=== PATIENT | female | born 1955 | race Caucasian/White ===

== ENCOUNTER 2018-04-07 08:36 | Emergency (ER) | payer OTHER ==
[2018-04-07 08:39] VITALS: TEMP 36.7; Ht 167.6 cm
[2018-04-07 08:48] VITALS: O2SAT 94
[2018-04-07] MEDS ORDERED: HYDROmorphone INJ 0.5 MG/0.5 ML SYR IM STA (09:01)
[2018-04-07] MEDS ORDERED: ONDANSETRON 4MG OD TAB PO ONE (09:15)
[2018-04-07] MEDS ORDERED: ASPI81TA28 PO (09:29)
[2018-04-07] MEDS ORDERED: ADVIN25/60 INH (09:29)
[2018-04-07] MEDS ORDERED: CYCL5TAB PO (09:29)
[2018-04-07] MEDS ORDERED: VNTHFA/IN INH (09:29)
[2018-04-07] MEDS ORDERED: SIMV10TA2 PO (09:29)
[2018-04-07] MEDS ORDERED: POTA20SO2 PO (09:29)
[2018-04-07] MEDS ORDERED: FSM70 PO (09:29)
--- NOTE | 2018-04-07 10:24 | DIAGNOSTIC IMAGING REPORT ---
LEFT FEMUR 4 VIEWS HISTORY: Left femur and knee pain. COMPARISON: None. FINDINGS: There is no fracture or dislocation. Soft tissues are unremarkable. The visualized pelvic bones are intact. Cartilage spaces within the left hip are within normal limits. Diffuse muscle atrophy. No significant knee effusion. IMPRESSION: No fracture or dislocation within the left femur. Electronically signed by: Alfred Doe M.D. 04/07/2018 10:23 AM Dictated Date/Time: 04/07/2018 10:21 AM
--- NOTE | 2018-04-07 10:26 | DIAGNOSTIC IMAGING REPORT ---
LUMBAR SPINE 5 VIEWS HISTORY: LLE pain - possible lumbar radiculitis COMPARISON: None. FINDINGS: There is no fracture. No subluxation. Mild disc space are at L5-S1. S1 appears to be a transitional vertebra. Remaining disc spaces are preserved. Mild facet osteoarthritis within the L5-S1. Calcification within the right upper quadrant is likely due to the overlying ribs but could represent a 5 mm renal stone. IMPRESSION: Mild degenerative changes at L5-S1. No fracture or subluxation within the lumbar spine. Electronically signed by: Alfred Doe M.D. 04/07/2018 10:25 AM Dictated Date/Time: 04/07/2018 10:23 AM
[2018-04-07] MEDS ORDERED: OXYC1TAB3 PO (11:07)
[2018-04-07 11:30] VITALS: BP 108/66; PULSE 71; O2SAT 96
--- NOTE | 2018-04-07 11:41 | EMERGENCY ROOM VISIT NOTE ---
History First contact with patient: 08:49 Chief Complaint: LEG PAIN,LEG INJURY Stated Complaint: SEVERE LEFT LEG PAIN History of Present Illness The patient is a 62 year old female who presents to the Emergency Room with complaints of severe left thigh and knee pain. The patient reports that her symptoms started on Friday and have progressively worsened. Her pain is worsened with any movement and ambulation at this point. She has noticed some swelling of the leg. She currently denies any pain extending into the left hip , buttock or back. She denies any paresthesias or numbness of the left lower extremity. The patient denies any history of left hip or knee arthritis. She denies history of chronic back pain or sciatica. The patient reports that she was at the [facility] emergency department yesterday and had x-rays and ultrasounds done. She was provided a prescription for Flexeril, but reports that her pain is not currently being controlled. The patient denies any recent trauma to the leg. She denies any prior history of blood clots. She rates her discomfort a 10 out of 10. Review of Systems 10 system review was performed and was negative except for pertinent positives and negatives as indicated in history of present illness Past Medical/Surgical History Medical Problems: (1) Asthma (2) COPD (chronic obstructive pulmonary disease) Surgical Problems: (1) History of hernia repair (2) History of tubal ligation Family History CVA Social History Smoking Status: Current Every Day Smoker Alcohol Use: none Housing Status: lives with family Occupation Status: unemployed Current/Historical Medications Scheduled Alendronate Sodium (Alendronate Sodium), 70 MG PO WK Aspirin (Aspirin Ec), 81 MG PO DAILY Cyclobenzaprine Hcl (Flexeril), 5 MG PO TID Fluticasone Prop/Salmeterol (Advair Diskus 250/50 60 Dose), 1 PUFF INH BID Potassium Chloride (Potassium Chloride), 7.5 ML PO DAILY Simvastatin (Zocor), 10 MG PO QPM Scheduled PRN Albuterol Hfa (Ventolin Hfa), 2-4 PUFFS INH Q6H PRN for SOB/Wheezing Oxycodone Ir (Roxicodone Ir), 1 TAB PO Q4H PRN for Pain Physical Exam Vital Signs Date Time Temp Pulse Resp B/P (MAP) Pulse Ox O2 Delivery O2 Flow Rate FiO2 04/07/18 11:30 71 18 108/66 96 04/07/18 10:45 78 18 104/63 95 Nasal Cannula 3.0 04/07/18 08:48 94 Nasal Cannula 3.0 04/07/18 08:39 36.7 114 20 117/65 95 Room Air Physical Exam CONSTITUTIONAL: Healthy and well nourished. Alert and oriented X 3 with positive affect. Patient appears in moderate discomfort from pain. HEENT: Normocephalic, atraumatic. Pupils equal, round and reactive. No scleral icterus or conjunctival injection. NECK: Full active range of motion without discomfort. RESPIRATORY: Clear to auscultation bilaterally with no wheezing, crackles, rhonchi or stridor. CARDIOVASCULAR: Regular rate and rhythm with no murmurs, rubs or gallops. GASTROINTESTINAL: Bowel sounds present in all quadrants. Soft and nontender to palpation. MUSCULOSKELETAL: Examination shows no tenderness to palpation through the lower lumbar spine, left SI joint or sciatic notch. Negative logroll. Examination shows notable tenderness to palpation over the left lateral thigh, posterior thigh and general knee region. No soft tissue edema, ecchymosis or increased warmth to palpation. Pedal pulses are strong and bounding. INTEGUMENTARY: No rash or other significant dermatologic conditions noted. NEUROLOGIC: No focal neurologic deficits noted. Left foot and toes are sensory intact. Medical Decision & Procedures ER Provider Diagnostic Interpretation: My interpretation of lumbar spine and left femur x-rays does not show any obvious fractures, subluxations or dislocations. Radiologist reports are as follows: LUMBAR SPINE 5 VIEWS HISTORY: LLE pain - possible lumbar radiculitis COMPARISON: None. FINDINGS: There is no fracture. No subluxation. Mild disc space are at L5-S1. S1 appears to be a transitional vertebra. Remaining disc spaces are preserved. Mild facet osteoarthritis within the L5-S1. Calcification within the right upper quadrant is likely due to the overlying ribs but could represent a 5 mm renal stone. IMPRESSION: Mild degenerative changes at L5-S1. No fracture or subluxation within the lumbar spine. LEFT FEMUR 4 VIEWS HISTORY: Left femur and knee pain. COMPARISON: None. FINDINGS: There is no fracture or dislocation. Soft tissues are unremarkable. The visualized pelvic bones are intact. Cartilage spaces within the left hip are within normal limits. Diffuse muscle atrophy. No significant knee effusion. IMPRESSION: No fracture or dislocation within the left femur. Medications Administered Medications (Trade) Dose Ordered Sig/Dimas Route Start Time Stop Time Status Last Admin Dose Admin Ondansetron HCl (Zofran Odt) 4 mg ONE ONCE PO 04/07/18 09:15 04/07/18 09:16 DC 04/07/18 09:08 4 MG Hydromorphone HCl (Dilaudid Inj) 0.5 mg ONE STAT IM 04/07/18 09:01 04/07/18 09:04 DC 04/07/18 09:08 0.5 MG ED Course Patient history and physical exam were performed. Nurse's notes were reviewed. Vital signs were reviewed and were grossly normal. The patient was administered IM Dilaudid and Zofran ODT for pain. Records were reviewed from the [facility]. The patient had a venous ultrasound of the left lower extremity that was normal. She also had an x-ray of the left knee that was normal. She had lab work performed that was normal, along with an ECG and chest x-ray that were unremarkable. The patient was provided a prescription for Flexeril, and instructed to follow-up with her PCP for further management. Based on physical exam findings, I suggested that we add an x-ray of the lumbar spine and femur. The patient was administered OxyIR 5 mg for pain. X-rays of the lower back and left femur were normal. Upon return to examine the patient, she was resting comfortably. The patient still had tenderness to palpation of the right proximal femur, again without any skin changes or other concerning physical exam findings. The case was also discussed with Dr. Ladd, ED attending physician, who also evaluated the patient and agrees with discharge planning and PCP follow-up. The daughter who is with her reports that she has both a walker and access to a wheelchair at home. I did encourage limited weightbearing over the next several days. She was encouraged to take ibuprofen and Tylenol for baseline pain relief. She was provided a prescription for OxyIR 5 mg. She was warned about sedation and constipation while taking these medications. The patient was happy with plan of care, voiced understanding of all discharge instructions, and rated her pain a 3 out of 10 at the time of discharge. The patient was trial ambulated with a walker with success. Medical Decision Medication Reconcilliation Current Medication List: was personally reviewed by me Blood Pressure Screening Patient's blood pressure: Normal blood pressure Impression Primary Impression: Pain of left lower extremity Departure Information Prescriptions Oxycodone Ir (Roxicodone Ir) 5 Mg Tab 1 TAB PO Q4H Y for Pain, #10 TAB For Initial Treatment Prov: Isiah Weiss PA 04/07/18 Referrals No Doctor, Assigned (PCP) Patient Instructions [facility]
--- NOTE | 2018-04-07 18:13 | EMERGENCY ROOM VISIT NOTE ---
ED Visit Note First contact with patient: 10:54 I have personally seen and evaluated the patient with the PA. I agree with the diagnosis and management decisions and have been personally involved in the case. Please see Ronaldo Weiss PA-C's notes for further details of the history, physical and visit.
== END 2018-04-07 11:32 | disposition home or self-care (01) ==
LOC: C.EDB 08:38 → C.EDA 11:32
DX: M79.605 Pain in left leg (principal); J44.9 Chronic obstructive pulmonary disease, unspecified; Z98.51 Tubal ligation status; Z82.3 Family history of stroke; F17.210 Nicotine dependence, cigarettes, uncomplicated; Z79.82 Long term (current) use of aspirin; Z79.899 Other long term (current) drug therapy

== ENCOUNTER 2019-01-29 17:38 | Inpatient (IN) ==
[2019-01-29] MEDS ORDERED: ALBUTEROL HFA 8 GM INHALER INH ONE (18:19)
[2019-01-29] MEDS ORDERED: ALBUT/IPRATROP 3MG/0.5MG NEB 3 ML VIAL NEB ONE (18:19)
[2019-01-29] MEDS ORDERED: methylPREDNISolone 125 MG/2 ML VIAL IV STA (18:22)
[2019-01-29 18:35] LABS: Basophils # (auto) 0.01 K/uL (0-0.2); Basophils % (auto) 0.1 %; Eosinophils # (auto) 0.01 K/uL (0-0.5); Eosinophils % (auto) 0.1 %; Hematocrit (blood only) 42.4 % (37-47); Hemoglobin 13.4 g/dL (12.0-16.0); Immature Granulocytes # (auto) 0.03 K/uL (0.00-0.02); Immature Granulocytes % (auto) 0.3 %; Lymphocytes # (auto) 1.62 K/uL (1.2-3.4); Lymphocytes % (auto) 13.6 %; Mean Corpuscular Hgb Conc 31.6 g/dL (32-36); Mean Corpuscular Volume 95.1 fL (80-100); Mean Platelet Volume 10.5 fL (7.4-10.4); Monocytes # (auto) 0.97 K/uL (0.11-0.59); Monocytes % (auto) 8.2 %; Neutrophils # (auto) 9.25 K/uL (1.4-6.5); Neutrophils % (auto) 77.7 %; Platelet Count 314 K/uL (130-400); RDW Coefficient of Variation 14.1 % (11.5-14.5); RDW Standard Deviation 48.5 fL (36.4-46.3); Red Blood Count 4.46 M/uL (4.2-5.4); White Blood Count 11.89 K/uL (4.8-10.8)
--- NOTE | 2019-01-29 18:42 | XRay Report ---
XR chest 1V portable CLINICAL HISTORY: Chest Pain dyspnea COMPARISON STUDY: 01/28/2019 FINDINGS: The bones soft tissues and hemidiaphragms are normal. The cardiomediastinal silhouette is n ormal. The lungs are clear. The pulmonary vasculature is normal. IMPRESSION: Negative chest. Stable emphysematous change The above report was generated using voice recognition software. It may contain grammatical, syntax or spelling errors. Electronically signed by: Eric Esquivel M.D. 01/29/2019 6:41 PM
[2019-01-29 18:45] LABS: Alanine Aminotransferase 25 U/L (12-78); Albumin Level 3.6 gm/dl (3.4-5.0); Aspartate Aminotransferase 16 U/L (15-37); Blood Urea Nitrogen 12 mg/dl (7-18); Calcium 8.5 mg/dl (8.5-10.1); Carbon Dioxide 33 mmol/L (21-32); Chloride 102 mmol/L (98-107); Creatinine Clr Calc Pharmacy 62.9 ml/min; Est GFR (African American) 108.5; Est GFR (Non-African American) 93.6; Glucose 128 mg/dl (70-99); Potassium 4.2 mmol/L (3.5-5.1); Sodium 141 mmol/L (136-145)
[2019-01-29 18:50] LABS: Albumin Globulin Ratio 1.1 (0.9-2); Alkaline Phosphatase 108 U/L (45-117); Bilirubin,Total 0.2 mg/dl (0.2-1); Creatine Kinase 137 U/L (26-192); Creatine Kinase MB 3.9 ng/ml (0.5-3.6); Globulin 3.4 gm/dl (2.5-4.0); Troponin I < 0.015 ng/ml (0-0.045)
[2019-01-29] MEDS ORDERED: MAGNESIUM SULFATE / D5W 1 GM/100 ML BAG IV ONE (19:42)
--- NOTE | 2019-01-29 22:25 | History & Physical Report ---
Date of Service January 29, 2019 Assessment & Plan (1) COPD exacerbation: 63-year-old female was admitted on 29 January 2019 for shortness of breath. Of note, she was seen in the ED the day prior with similar symptoms. Shortness of breath, COPD vs asthma exacerbation: Patient notes some progressive SOB over the past couple of days. Denies any current chest pain, fevers, or infectious symptoms. She was seen in the ED the day prior to admission, treated with DuoNeb Solu-Medrol, discharged on steroids. However she says her SOB persisted at home on day of admit. At present, afebrile, borderline tachycardic prior to her neb, 93% on 3 L nasal cannula oxygen. EKG is sinus tachycardia with rate 123. Mild leukocytosis of 11. Negative troponin. pCXR notes no acute infiltrate with stable emphysematous changes. - In ED on evening of admission, was treated with albuterol, Solu-Medrol 60 mg, and magnesium 1 gram. - On admit, ordered scheduled DuoNeb's q6h and Solu-Medrol 40 mg IV every 8 hours. Will keep her on her home Advair. Smoking cessation education ordered. - Of note, at home she is on 3L [place] oxygen continuously. Falls: Patient says that recently she has been falling more often. She attributes this to episodes of acute shortness of breath but also some chronic deconditioning. - We will ask PT and OT to evaluate for potential home exercises. Ongoing medical issues: - Hypercholesterolemia: Continue home simvastatin. - Osteoporosis: Continue home alendronate. - ? hypokalemia: Patient says she takes potassium at home but is unsure why. We will continue here. Code status: Full code. Diet: Regular. DVT prophy: Lovenox daily. PT/OT: Ordered. Disbo: Admit for observation to [facility]. (2) Asthma: (3) Falls: (4) Hypercholesteremia: (5) Osteoporosis: History of Present Illness Primary Care Provider: Alesha Means 63-year-old female presents via EMS with concerns for progressively worsening shortness of breath. She has known history of asthma and COPD, as well as continues to smoke up to 1 pack/day for over 45 years. She says she ran out of her nebulizer solution and albuterol MDI over the past few days. She presented to the emergency department yesterday, was provided breathing treatments and steroids, and sent home with the same. She says she went to the pharmacy to fill those. However, she says that the nebulizer solution was unfamiliar to her and did not seem to help throughout today. She says her shortness of breath is worse with ambulation and that she has a mild cough. She also says that she has some concerns about falling, primarily when she becomes acutely SOB. She denies any recent fevers or chills, chest pain, feeling of a recent illness, or any other acute concerns. PMH includes asthma and COPD. PSH includes tubal ligation, inguinal hernia repair, breast biopsy. Social history includes daily smoker about 1 pack/day since age 16. Denies alcohol use. Lives at home with her daughter, nephews, and daughter's boyfriend. PCP is Dr. Alesha Means. Allergies Allergy/AdvReac Type Severity Reaction Status Date / Time No Known Allergies Allergy Unverified 01/29/19 18:06 Home Medications Home Medications Medication Instructions Recorded Confirmed Type albuterol sulfate 1.25 mg INH Q6H PRN #75 ml 01/28/19 01/29/19 Rx albuterol sulfate [Ventolin HFA] 2 - 4 puff INHALATION Q6H PRN 01/28/19 01/29/19 History alendronate 70 mg PO WK 01/28/19 01/29/19 History aspirin 81 mg PO QAM 01/28/19 01/29/19 History fluticasone-salmeterol [Advair 1 puff INHALATION BID 01/28/19 01/29/19 History Diskus] ipratropium-albuterol 1 vial INHALATION Q4H 01/28/19 01/29/19 History potassium chloride 7.5 ml PO QAM 01/28/19 01/29/19 History prednisone 50 mg PO DAILY 5 Days #5 tab 01/28/19 01/29/19 Rx simvastatin 10 mg PO HS 01/28/19 01/29/19 History Past Med/Surg History Medical History Asthma COPD (chronic obstructive pulmonary disease) Surgical History History of hernia repair History of tubal ligation Social History Preferred Language: Danish Communication Ability: Effective Patient Partner Required: No Beliefs That Will Affect Care: None Current Living Situation: Family Feels Safe at Home: Yes Safety Concerns: Feels Safe At This Time Smoking Status: Current every day smoker Hx Alcohol Use: No Hx Substance Use: No Review of Systems Constitutional: Denies fevers, chills, focal weakness Eyes: Denies any visual loss or diplopia ENT: Denies any ear/nose/throat pain or difficulty speaking or swallowing Respiratory: See HPI. Cardiovascular: Denies any chest pain or feeling of edema Gastrointestinal: Denies any abdominal pain, nausea/vomiting/diarrhea Musculoskeletal: Denies any acute extremity pains, myalgias, or focal weakness Skin: Denies any known acute rashes or lesions Neuro: Denies any headache, acute focal weakness or numbness, or difficulties with speech or swallow. Physical Exam Vital Signs (Past 24 Hours): Last Vital Signs Temp 36.8 C 01/29/19 17:42 Pulse 98 H 01/29/19 22:02 Resp 20 01/29/19 22:02 BP 97/53 L 01/29/19 22:02 Pulse Ox 94 01/29/19 22:02 Physical Exam: GENERAL: Awake, alert, well-appearing, nasal cannula oxygen in place, speaking in full sentences, does not appear in any acute distress (respiratory or otherwise). Thin habitus. HENT: Normocephalic, atraumatic. Oropharynx unremarkable. EYES: Normal conjunctiva. Sclera non-icteric. NECK: Inspection normal. Non-tender. Supple and full ROM. No nuchal rigidity. CARDIAC: +S1S2 RRR, no murmurs. RESPIRATORY: Diffuse inspiratory and expiratory wheezing. Normal respiratory effort. Nasal cannula oxygen in place. GI: +BS, soft, non-distended. No tenderness to palpation. No rebound or guarding. EXTREMITIES: No pedal edema or calf tenderness. Moving all extremities naturally and easily. NEURO: No gross neuro deficits. Results & Data Laboratory Results Laboratory Results WBC 11.89 K/uL (4.8-10.8) H 01/29/19 17:10 RBC 4.46 M/uL (4.2-5.4) 01/29/19 17:10 Hgb 13.4 g/dL (12.0-16.0) 01/29/19 17:10 Hct 42.4 % (37-47) 01/29/19 17:10 MCV 95.1 fL (80-100) 01/29/19 17:10 MCH 30.0 pg (25-34) 01/29/19 17:10 MCHC 31.6 g/dL (32-36) L 01/29/19 17:10 RDW Std Deviation 48.5 fL (36.4-46.3) H 01/29/19 17:10 RDW Coeff of Maria D 14.1 % (11.5-14.5) 01/29/19 17:10 Plt Count 314 K/uL (130-400) 01/29/19 17:10 MPV 10.5 fL (7.4-10.4) H 01/29/19 17:10 Immature Gran % (Auto) 0.3 % 01/29/19 17:10 Neut % (Auto) 77.7 % 01/29/19 17:10 Lymph % (Auto) 13.6 % 01/29/19 17:10 [place] % (Auto) 8.2 % 01/29/19 17:10 Eos % (Auto) 0.1 % 01/29/19 17:10 Baso % (Auto) 0.1 % 01/29/19 17:10 Immature Gran # (Auto) 0.03 K/uL (0.00-0.02) H 01/29/19 17:10 Neut # (Auto) 9.25 K/uL (1.4-6.5) H 01/29/19 17:10 Lymph # (Auto) 1.62 K/uL (1.2-3.4) 01/29/19 17:10 [place] # (Auto) 0.97 K/uL (0.11-0.59) H 01/29/19 17:10 Eos # (Auto) 0.01 K/uL (0-0.5) 01/29/19 17:10 Baso # (Auto) 0.01 K/uL (0-0.2) 01/29/19 17:10 Sodium 141 mmol/L (136-145) 01/29/19 17:10 Potassium 4.2 mmol/L (3.5-5.1) 01/29/19 17:10 Chloride 102 mmol/L (98-107) 01/29/19 17:10 Carbon Dioxide 33 mmol/L (21-32) H 01/29/19 17:10 Anion Gap 6.0 (3-11) 01/29/19 17:10 BUN 12 mg/dl (7-18) 01/29/19 17:10 Creatinine 0.64 mg/dl (0.6-1.2) 01/29/19 17:10 Est Cr Clr Drug Dosing 62.9 ml/min 01/29/19 17:10 Est GFR ( Amer) 108.5 01/29/19 17:10 Est GFR (Non-Af Amer) 93.6 01/29/19 17:10 BUN/Creatinine Ratio 18.0 (10-20) 01/29/19 17:10 Glucose 128 mg/dl (70-99) H 01/29/19 17:10 Calcium 8.5 mg/dl (8.5-10.1) 01/29/19 17:10 Total Bilirubin 0.2 mg/dl (0.2-1) 01/29/19 17:10 AST 16 U/L (15-37) 01/29/19 17:10 ALT 25 U/L (12-78) 01/29/19 17:10 Alkaline Phosphatase 108 U/L (45-117) 01/29/19 17:10 Total Creatine Kinase 137 U/L (26-192) 01/29/19 17:10 CK-MB (CK-2) 3.9 ng/ml (0.5-3.6) H 01/29/19 17:10 CK/CKMB % Calc 2.8 (0-3.0) 01/29/19 17:10 Troponin I < 0.015 ng/ml (0-0.045) 01/29/19 17:10 Total Protein 7.0 gm/dl (6.4-8.2) 01/29/19 17:10 Albumin 3.6 gm/dl (3.4-5.0) 01/29/19 17:10 Globulin 3.4 gm/dl (2.5-4.0) 01/29/19 17:10 Albumin/Globulin Ratio 1.1 (0.9-2) 01/29/19 17:10 Lipase 402 U/L (73-393) H 01/29/19 17:10 Diagnostic Findings XR chest 1V portable CLINICAL HISTORY: Chest Pain dyspnea COMPARISON STUDY: 01/28/2019 FINDINGS: The bones soft tissues and hemidiaphragms are normal. The cardiomediastinal silhouette is normal. The lungs are clear. The pulmonary vasculature is normal. IMPRESSION: Negative chest. Stable emphysematous change Code Status & VTE Plan Code Status Full code Supervising Physician Co-Signing Physician Notes Attending addendum: I have physically seen this patient, have supervised the medical residents activities, and agree with the H&P unless as otherwise noted. Assessment and Plan: COPD exacerbation/tobacco use disorder-- Duonebs every 4 hours while awake and every 2 hours when necessary. Solu-Medrol 40 mg IV every 8 hours. Nasal cannula oxygen, titrate to keep pulse ox between 92-94%. Baseline oxygen is 3 L nasal cannula at home. Continue Advair. Tobacco cessation counseling. Remainder of orders and notations as noted. Resident Activity Tracking Resident Involvement: Resident Care Provided Care Provided: Adult Hospital Medicine
--- NOTE | 2019-01-29 23:51 | Emergency Department Note ---
Entered by Barbara Elder acting as a scribe for History of Present Illness General Chief complaint: Shortness of Breath/Dyspnea Time Seen by Provider: 01/29/19 17:40 Source: patient and family Mode of arrival: ambulatory Limitations: no limitations History of Present Illness Onset (ago): day(s) 2 Location: chest Radiation: non-radiation Pain Consistency: + constant Relieved By: + none Exacerbated By: + movement Associated symptoms: + denies other symptoms Treatments prior to arrival: other (Solu-Medrol, DuoNeb treatments, steroids) The patient is a 63 year old female who presents to the Emergency Room with complaints of worsening shortness of breath. She was brought to the ED via ALS. She has a history of COPD and is a 1 pack a day smoker. She reports she wears 3L NC chronically. EMS states she was 90% on room air when they arrived today. The patient was seen here in the ED yesterday for the same symptoms and was placed o n steroids, which she states she has been taking as prescribed. She states she recently ran out of her breathing treatments including Ventolin. EMS gave her 3 DuoNeb treatments and 125 mg of Solu-Medrol via IV. Home Medications Home Medications Medication Instructions Recorded Confirmed Type albuterol sulfate 1.25 mg INH Q6H PRN #75 ml 01/28/19 01/29/19 Rx albuterol sulfate [Ventolin HFA] 2 - 4 puff INHALATION Q6H PRN 01/28/19 01/29/19 History alendronate 70 mg PO WK 01/28/19 01/29/19 History aspirin 81 mg PO QAM 01/28/19 01/29/19 History fluticasone-salmeterol [Advair 1 puff INHALATION BID 01/28/19 01/29/19 History Diskus] ipratropium-albuterol 1 vial INHALATION Q4H 01/28/19 01/29/19 History potassium chloride 7.5 ml PO QAM 01/28/19 01/29/19 History prednisone 50 mg PO DAILY 5 Days #5 tab 01/28/19 01/29/19 Rx simvastatin 10 mg PO HS 01/28/19 01/29/19 History Allergies Allergy/AdvReac Type Severity Reaction Status Date / Time No Known Allergies Allergy Unverified 01/29/19 18:06 Past Med/Surg History Medical History Asthma COPD (chronic obstructive pulmonary disease) Surgical History History of hernia repair History of tubal ligation Social History Preferred Language: Pashto Feels Safe at Home: Yes Smoking Status: Current every day smoker Review of Systems See HPI for pertinent positives & negatives. and A total of 10 systems reviewed and were otherwise negative Physical Exam Vital Signs Vital Signs - 24 hr 01/29/19 17:42 01/29/19 17:45 01/29/19 17:47 Temperature 36.8 C Temperature Source Oral Sepsis Recent Fever Within 48 Hours No Sepsis New/Unexplained Change in Mental Status No Sepsis Action Taken by Nursing No Action Required Pulse Rate 128 H Pulse Rate [Right Finger] Pulse Rhythm [Right Finger] Pulse Strength [Right Finger] Respiratory Rate 20 Respiratory Effort / Characteristics Non-Labored Spontaneous Non-Labored Spontaneous Respiratory Depth Normal Normal Respiratory Pattern Regular Regular Blood Pressure 123/66 Blood Pressure [Right Arm] Blood Pressure Mean 85 Blood Pressure Mean [Right Arm] Pulse Oximetry 93 93 Oxygen Delivery Method Room Air Room Air Nasal Cannula Oxygen Flow Rate 3 01/29/19 18:51 01/29/19 18:53 01/29/19 20:14 Temperature Temperature Source Sepsis Recent Fever Within 48 Hours Sepsis New/Unexplained Change in Mental Status Sepsis Action Taken by Nursing Pulse Rate Pulse Rate [Right Finger] 103 H 101 H 123 H Pulse Rhythm [Right Finger] Regular Pulse Strength [Right Finger] Normal Respiratory Rate 16 23 18 Respiratory Effort / Characteristics Non-Labored Spontaneous Non-Labored Spontaneous Respiratory Depth Normal Respiratory Pattern Blood Pressure Blood Pressure [Right Arm] 126/77 115/68 Blood Pressure Mean Blood Pressure Mean [Right Arm] 93 83 Pulse Oximetry 93 99 93 Oxygen Delivery Method Nasal Cannula Nebulizer Nebulizer Oxygen Flow Rate 3 8 01/29/19 22:02 01/29/19 22:45 01/29/19 23:40 Temperature Temperature Source Sepsis Recent Fever Within 48 Hours Sepsis New/Unexplained Change in Mental Status Sepsis Action Taken by Nursing Pulse Rate 78 Pulse Rate [Right Finger] 98 H 114 H Pulse Rhythm [Right Finger] Regular Regular Pulse Strength [Right Finger] Normal Normal Respiratory Rate 20 16 18 Respiratory Effort / Characteristics Non-Labored Spontaneous Non-Labored Spontaneous Respiratory Depth Normal Normal Respiratory Pattern Blood Pressure 98/46 L Blood Pressure [Right Arm] 97/53 L 114/61 Blood Pressure Mean Blood Pressure Mean [Right Arm] 67 78 Pulse Oximetry 94 94 97 Oxygen Delivery Method Nasal Cannula Room Air Nasal Cannula Oxygen Flow Rate 3 3 GENERAL: Awake, alert, well-appearing, in no distress HENT: Normocephalic, atraumatic. Oropharynx unremarkable. EYES: Normal conjunctiva. Sclera non-icteric. NECK: Supple. No nuchal rigidity. FROM. No masses. RESPIRATORY: Distant lung sounds with wheezing present at the bilateral bases. CARDIAC: Normal rate. Normal rhythm. No murmurs. No rubs. Extremities warm and well perfused. Pulses equal. No JVD. GI: Soft, non-distended. No tenderness to palpation. No rebound or guarding. No masses. RECTAL: Deferred. MUSCULOSKELETAL: Atraumatic. Chest examination reveals no tenderness. The back is symmetrical on inspection without obvious abnormality. There is no CVA tenderness to palpation. No joint edema. LOWER EXTREMITIES: Calves are equal size bilaterally and non-tender. No edema. No discoloration. NEURO: Normal sensorium. No sensory or motor deficits noted. Course 1815: Past medical records reviewed. The patient was evaluated in room C5, and a complete history and physical examination were performed. 1950: [facility] The [facility] will be further evaluated. Consultations Consultation #1: I discussed the patients case with Dr. Potter, [facility]. The patient will be further evaluated. Time: 19:50 Administered Medications Discontinued Medications Albuterol (Ventolin Hfa) 2 puffs INH NOW ONE Stop: 01/29/19 18:20 Last Admin: 01/29/19 18:53 Dose: 2 puffs Documented by: [id number] Albuterol (Duoneb) 12 ml NEB ONE ONE Stop: 01/29/19 18:20 Last Admin: 01/29/19 18:48 Dose: 12 ml Documented by: [id number] Magnesium Sulfate/Dextrose (Magnesium Sulfate / D5w) 1 gm in 100 mls @ 100 mls/hr IV ONE ONE Stop: 01/29/19 20:41 Last Infusion: 01/29/19 21:10 Dose: 0 mls/hr Documented by: [id number] Admin: 01/29/19 20:06 Dose: 100 mls/hr Documented by: [id number] Methylprednisolone (Solumedrol) 60 mg IV NOW STA Stop: 01/29/19 18:23 Last Admin: 01/29/19 18:50 Dose: Not Given Documented by: [id number] Medical Decision Making Differential Diagnosis Differential diagnoses includes but is not limited to pneumonia, bronchitis, COPD/Asthma exacerbation, pneumothorax, pulmonary embolism, congestive heart failure, acute coronary syndrome Medical Records Attestation: I reviewed the patient's medical records. Home Medications Current Medication List: was personally reviewed by me Laboratory Data Attestation: I reviewed the patient's lab results. Result diagrams: 01/29/19 17:10 01/29/19 17:10 Lab Results 01/29/19 01/29/19 Range/Units 17:10 17:10 WBC 11.89 H (4.8-10.8) K/uL RBC 4.46 (4.2-5.4) M/uL Hgb 13.4 (12.0-16.0) g/dL Hct 42.4 (37-47) % MCV 95.1 (80-100) fL MCH 30.0 (25-34) pg MCHC 31.6 L (32-36) g/dL RDW Std Deviation 48.5 H (36.4-46.3) fL RDW Coeff of Maria D 14.1 (11.5-14.5) % Plt Count 314 (130-400) K/uL MPV 10.5 H (7.4-10.4) fL Immature Gran % (Auto) 0.3 % Neut % (Auto) 77.7 % Lymph % (Auto) 13.6 % [place] % (Auto) 8.2 % Eos % (Auto) 0.1 % Baso % (Auto) 0.1 % Immature Gran # (Auto) 0.03 H (0.00-0.02) K/uL Neut # (Auto) 9.25 H (1.4-6.5) K/uL Lymph # (Auto) 1.62 (1.2-3.4) K/uL [place] # (Auto) 0.97 H (0.11-0.59) K/uL Eos # (Auto) 0.01 (0-0.5) K/uL Baso # (Auto) 0.01 (0-0.2) K/uL Sodium 141 (136-145) mmol/L Potassium 4.2 (3.5-5.1) mmol/L Chloride 102 (98-107) mmol/L Carbon Dioxide 33 H (21-32) mmol/L Anion Gap 6.0 (3-11) BUN 12 (7-18) mg/dl Creatinine 0.64 (0.6-1.2) mg/dl Est Cr Clr Drug Dosing 62.9 ml/min Est GFR ( Amer) 108.5 Est GFR (Non-Af Amer) 93.6 BUN/Creatinine Ratio 18.0 (10-20) Glucose 128 H (70-99) mg/dl Calcium 8.5 (8.5-10.1) mg/dl Total Bilirubin 0.2 (0.2-1) mg/dl AST 16 (15-37) U/L ALT 25 (12-78) U/L Alkaline Phosphatase 108 (45-117) U/L Total Creatine Kinase 137 (26-192) U/L CK-MB (CK-2) 3.9 H (0.5-3.6) ng/ml CK/CKMB % Calc 2.8 (0-3.0) Troponin I < 0.015 (0-0.045) ng/ml Total Protein 7.0 (6.4-8.2) gm/dl Albumin 3.6 (3.4-5.0) gm/dl Globulin 3.4 (2.5-4.0) gm/dl Albumin/Globulin Ratio 1.1 (0.9-2) Lipase 402 H (73-393) U/L Imaging Data Radiologist's Impression: Radiology results as stated below per my review and the radiologist's interpretation: XR chest 1V portable CLINICAL HISTORY: Chest Pain dyspnea COMPARISON STUDY: 01/28/2019 FINDINGS: The bones soft tissues and hemidiaphragms are normal. The cardiomedia stinal silhouette is normal. The lungs are clear. The pulmonary vasculature is normal. IMPRESSION: Negative chest. Stable emphysematous change The above report was generated using voice recognition software. It may contain grammatical, syntax or spelling errors. Electronically signed by: Eric Esquivel M.D. 01/29/2019 6:41 PM ECG Data Attestation: I personally reviewed and interpreted this ECG as follows: Indication: SOB/dyspnea Rate (beats per minute): 123 Rhythm: sinus tachycardia Findings: no ST depression and no ST elevation Blood Pressure Blood Pressure Findings: Normal blood pressure Blood Pressure Disposition: did not require urgent referral MDM Narrative This is a 63-year-old female who presents emergency department after becoming hypoxic at home. She was given Solu-Medrol by EMS and started on breathing treatments. The patient was given an hour-long breathing treatment here in the emergency department. Patient is still requiring 3 L of oxygen here. For this reason I did discuss the case with the hospitalist service who agreed to admit the patient. Patient and family were in agreement with the treatment plan. Impression & Plan Hypoxia, COPD exacerbation Discharge Plan Visit Data Chief Complaint: Shortness of Breath/Dyspnea ED Provider: Dar Amezcua Discharge Problem: Hypoxia, COPD exacerbation Patient Disposition: Being Evaluated by Hospitalist Discharge Instructions Interventions: ED Discharge Assessment Last Done: 01/29/19 23:40 The scribe's documentation has been prepared under my direction and personally reviewed by me in its entirety. I confirm that the note above accurately reflects all work, treatment, procedures, and medical decision making performed by me.
[2019-01-30] MEDS ORDERED: ACETAMINOPHEN 325 MG TAB PO PRN (00:02)
[2019-01-30] MEDS ORDERED: ONDANSETRON INJ 2 MG/ML 2 ML VIAL IV PRN (00:02)
[2019-01-30] MEDS ORDERED: ALBUTEROL HFA 8 GM INHALER INH PRN (00:02)
[2019-01-30] MEDS: ALBUT/IPRATROP 3MG/0.5MG NEB 3 ML VIAL NEB SCH ×4 (01:09→19:10)
[2019-01-30] MEDS: methylPREDNISolone 40 MG in SYRINGE 0 ML IV SCH ×3 (03:23→18:20)
[2019-01-30] MEDS: FLUTICASONE/SALMETEROL 250/50 (ADVAIR) 14 PUFF/1 INHALER INH SCH ×2 (07:53→20:43)
[2019-01-30] MEDS: POTASSIUM CHLORIDE 20MEQ/15ML 473ML PO SCH (07:54)
[2019-01-30] MEDS: ASPIRIN 81 MG ECTAB PO SCH (07:54)
[2019-01-30] MEDS: ENOXAPARIN INJ 30 MG/0.3 ML SYR SQ SCH (07:54)
[2019-01-30 08:18] LABS: Basophils # (auto) 0.01 K/uL (0-0.2); Basophils % (auto) 0.1 %; Eosinophils # (auto) 0.01 K/uL (0-0.5); Eosinophils % (auto) 0.1 %; Hematocrit (blood only) 42.4 % (37-47); Hemoglobin 13.3 g/dL (12.0-16.0); Immature Granulocytes # (auto) 0.04 K/uL (0.00-0.02); Immature Granulocytes % (auto) 0.3 %; Lymphocytes # (auto) 1.29 K/uL (1.2-3.4); Lymphocytes % (auto) 8.5 %; Mean Corpuscular Hgb Conc 31.4 g/dL (32-36); Mean Corpuscular Volume 95.1 fL (80-100); Monocytes # (auto) 0.58 K/uL (0.11-0.59); Monocytes % (auto) 3.8 %; Neutrophils # (auto) 13.27 K/uL (1.4-6.5); Neutrophils % (auto) 87.2 %; Platelet Count 304 K/uL (130-400); RDW Standard Deviation 48.1 fL (36.4-46.3); Red Blood Count 4.46 M/uL (4.2-5.4)
[2019-01-30 08:53] LABS: BUN Creatinine Ratio 14.1 (10-20); Calcium 8.5 mg/dl (8.5-10.1); Creatinine Clr Calc Pharmacy 66.3 ml/min; Est GFR (African American) 111.5; Est GFR (Non-African American) 96.2; Potassium 4.1 mmol/L (3.5-5.1)
--- NOTE | 2019-01-30 14:09 | Hospitalist Progress Note ---
Date of Service January 30, 2019 Assessment & Plan (1) COPD exacerbation: - On admission: EKG was sinus tachycardia, mild leukocytosis of 11, negative troponin, pCXR notes no acute infiltrate with stable emphysematous changes. - continue scheduled DuoNeb's q6h and Solu-Medrol 40 mg IV every 8 hours. - continue home Advair. - Smoking cessation education - baseline home O2 is 3L NC oxygen continuously - she is currently at her baseline (2) Asthma: (3) Falls: - Patient says that recently she has been falling more often. She attributes this to episodes of acute shortness of breath but also some chronic deconditioning. - PT/OT (4) Hypercholesteremia: Continue simvastatin (5) Osteoporosis: Continue alendronate (6) DVT prophylaxis: Lovenox Subjective Ms. Faria has significant SCHAEFER. She is coughing a bit without much production. No recent URI Review of Systems All systems reviewed & are unremarkable except as noted in HPI & below Physical Exam Vital Signs (Past 24 Hours): Last Vital Signs Temp 36.7 C 01/30/19 11:54 Pulse 85 01/30/19 13:52 Resp 22 01/30/19 13:52 BP 110/60 01/30/19 11:54 Pulse Ox 93 01/30/19 13:52 Physical Exam: General: no distress Eyes: normal inspection, PERLL Respiratory: chest non tender, clear to auscultation, diminished breath sounds bilateral bases, no respiratory distress, no accessory muscle use Cardiac: regular rate and rhythm, no rub or gallop, no murmur, no edema, no jvd GI/: active bowel sounds, no abd pain or tenderness, soft, non distended Extremities: normal range of motion, normal strength, non tender Neuro/Psych: alert and oriented x 3, normal mood and affect Skin: normal color, dry Results & Data Laboratory Results Abnormal lab results 01/29/19 01/29/19 01/30/19 Range/Units 17:10 17:10 07:55 WBC 11.89 H 15.20 H (4.8-10.8) K/uL MCHC 31.6 L 31.4 L (32-36) g/dL RDW Std Deviation 48.5 H 48.1 H (36.4-46.3) fL MPV 10.5 H (7.4-10.4) fL Immature Gran # (Auto) 0.03 H 0.04 H (0.00-0.02) K/uL Neut # (Auto) 9.25 H 13.27 H (1.4-6.5) K/uL [place] # (Auto) 0.97 H (0.11-0.59) K/uL Carbon Dioxide 33 H (21-32) mmol/L Creatinine (0.6-1.2) mg/dl Glucose 128 H (70-99) mg/dl CK-MB (CK-2) 3.9 H (0.5-3.6) ng/ml Lipase 402 H (73-393) U/L 01/30/19 Range/Units 07:55 WBC (4.8-10.8) K/uL MCHC (32-36) g/dL RDW Std Deviation (36.4-46.3) fL MPV (7.4-10.4) fL Immature Gran # (Auto) (0.00-0.02) K/uL Neut # (Auto) (1.4-6.5) K/uL [place] # (Auto) (0.11-0.59) K/uL Carbon Dioxide (21-32) mmol/L Creatinine 0.59 L (0.6-1.2) mg/dl Glucose 114 H (70-99) mg/dl CK-MB (CK-2) (0.5-3.6) ng/ml Lipase (73-393) U/L
[2019-01-30] MEDS: SIMVASTATIN 10 MG TAB PO SCH (20:43)
[2019-01-31] MEDS: ALBUT/IPRATROP 3MG/0.5MG NEB 3 ML VIAL NEB SCH ×4 (01:20→19:12)
[2019-01-31] MEDS: methylPREDNISolone 40 MG in SYRINGE 0 ML IV SCH ×3 (01:44→18:28)
[2019-01-31] MEDS: FLUTICASONE/SALMETEROL 250/50 (ADVAIR) 14 PUFF/1 INHALER INH SCH ×2 (07:57→21:02)
[2019-01-31] MEDS: POTASSIUM CHLORIDE 20MEQ/15ML 473ML PO SCH (07:58)
[2019-01-31] MEDS: ASPIRIN 81 MG ECTAB PO SCH (07:58)
[2019-01-31] MEDS: ENOXAPARIN INJ 30 MG/0.3 ML SYR SQ SCH (07:59)
--- NOTE | 2019-01-31 12:35 | Hospitalist Progress Note ---
Date of Service January 31, 2019 Assessment & Plan (1) COPD exacerbation: - On admission: EKG was sinus tachycardia, mild leukocytosis of 11, negative troponin x2, pCXR notes no acute infiltrate with stable emphysematous changes. - continue scheduled DuoNeb's q6h and Solu-Medrol 40 mg IV every 8 hours. - continue home Advair. - Smoking cessation education - baseline home O2 is 3L NC oxygen continuously - she is currently at her baseline oxygen requirement (2) Asthma: (3) Falls: - Patient says that recently she has been falling more often. She attributes this to episodes of acute shortness of breath but also some chronic deconditioning. - PT/OT (4) Hypercholesteremia: Continue simvastatin (5) Osteoporosis: Continue alendronate (6) DVT prophylaxis: Enoxaparin Subjective Ms. Faria continues to feel sob. She is saturating well on 3L NC. Review of Systems All systems reviewed & are unremarkable except as noted in HPI & below Physical Exam Vital Signs (Past 24 Hours): Last Vital Signs Temp 36.4 C L 01/31/19 07:35 Pulse 72 01/31/19 07:35 Resp 16 01/31/19 07:35 BP 111/70 01/31/19 07:35 Pulse Ox 91 01/31/19 11:19 Physical Exam: General: no distress Eyes: normal inspection, PERLL Respiratory: chest non tender, faint expiratory wheezes anteriorly, diminished breath sounds posteriorly, no respiratory distress, no accessory muscle use Cardiac: regular rate and rhythm, no rub or gallop, no murmur, no edema, no jvd GI/: active bowel sounds, no abd pain or tenderness, soft, non distended Extremities: normal range of motion, normal strength, non tender Neuro/Psych: alert and oriented x 3, normal mood and affect Skin: normal color, dry
[2019-01-31] MEDS: SIMVASTATIN 10 MG TAB PO SCH (21:02)
[2019-02-01] MEDS: ALBUT/IPRATROP 3MG/0.5MG NEB 3 ML VIAL NEB SCH ×3 (01:24→14:06)
[2019-02-01] MEDS: methylPREDNISolone 40 MG in SYRINGE 0 ML IV SCH ×2 (02:06→10:03)
[2019-02-01 07:51] LABS: Hematocrit (blood only) 42.7 % (37-47); Hemoglobin 13.7 g/dL (12.0-16.0); Immature Granulocytes # (auto) 0.04 K/uL (0.00-0.02); Immature Granulocytes % (auto) 0.3 %; Lymphocytes % (auto) 7.9 %; Mean Corpuscular Hgb Conc 32.1 g/dL (32-36); Mean Corpuscular Volume 94.3 fL (80-100); Mean Platelet Volume 10.1 fL (7.4-10.4); Monocytes # (auto) 0.47 K/uL (0.11-0.59); Monocytes % (auto) 3.4 %; Neutrophils # (auto) 12.35 K/uL (1.4-6.5); Neutrophils % (auto) 88.4 %; Platelet Count 314 K/uL (130-400); RDW Coefficient of Variation 13.6 % (11.5-14.5); Red Blood Count 4.53 M/uL (4.2-5.4); White Blood Count 13.96 K/uL (4.8-10.8)
[2019-02-01 08:29] LABS: Creatinine Clr Calc Pharmacy 67.5 ml/min
[2019-02-01 08:31] LABS: BUN Creatinine Ratio 27.2 (10-20); Calcium 8.5 mg/dl (8.5-10.1); Est GFR (African American) 111.5; Est GFR (Non-African American) 96.2; Potassium 4.1 mmol/L (3.5-5.1)
[2019-02-01] MEDS: FLUTICASONE/SALMETEROL 250/50 (ADVAIR) 14 PUFF/1 INHALER INH SCH (08:33)
[2019-02-01] MEDS: ENOXAPARIN INJ 30 MG/0.3 ML SYR SQ SCH (08:34)
[2019-02-01] MEDS: POTASSIUM CHLORIDE 20MEQ/15ML 473ML PO SCH (08:34)
[2019-02-01] MEDS: ASPIRIN 81 MG ECTAB PO SCH (08:34)
[2019-02-01] MEDS ORDERED: AMITRIPTYLINE HCL 10 MG TAB PO SCH (14:30)
[2019-02-01] MEDS ORDERED: OPTIRAY 320 125ml IV PRN (15:25)
--- NOTE | 2019-02-01 15:40 | CT Scan Report ---
CT head/brain wo con CT DOSE: HISTORY: Recent fall, head injury TECHNIQUE: Multiaxial CT images of the head were performed without the use of intravenous contrast. A dose lowering technique was utilized adhering to the principles of ALARA. Comparison: None. Findings: The paranasal sinuses and mastoid air cells are clear. The calvarium and skull base are int act. The ventricles and sulci are within normal limits. There is no mass, hematoma, midline shift, or acute infarct. Impression: No acute intracranial abnormality. The above report was generated using voice recognition software. It may contain grammatical, syntax or spelling errors. Electronically signed by: Eric Esquivel M.D. 02/01/2019 3:38 PM
--- NOTE | 2019-02-01 15:46 | CT Scan Report ---
ADDENDUM Instill note is made of several pulmonary micronodules of the right chest. These are no more than 2.5 to 3 mm in maximum dimension. Six-month follow-up is felt to be appropriate. Electronically signed by: Eric Esquivel M.D. 02/01/2019 4:[address] angio chest PE protocol CT DOSE: 754.54 mGy.cm HISTORY: Chest pain. Dyspnea. PE TECHNIQUE: Multiaxial CT images of the chest were performed following the intravenous administration of contrast to evaluate the pulmonary arteries. Maximal intensity projection images were also obtaine d. A dose lowering technique was utilized adhering to the principles of ALARA. COMPARISON STUDY: None. FINDINGS: Diffuse emphysematous change. Diffuse peribronchial thickening. The pulmonary vasculature e nhances appropriately. No major filling defects. No focal infiltrative change. Mild atherosclerotic c hange thoracic aorta with no evidence for aneurysm or dissection. IMPRESSION: 1. No evidence for pulmonary embolus. 2. Diffuse emphysematous change. 3. Superimposed bronchitis. The above report was generated using voice recognition software. It may contain grammatical, syntax or spelling errors. Electronically signed by: Eric Esquivel M.D. 02/01/2019 3:45 PM
--- NOTE | 2019-02-01 15:48 | Discharge Summary ---
Date of Service February 01, 2019 Admission HPI Per Admitting Provider 63-year-old female presents via EMS with concerns for progressively worsening shortness of breath. She has known history of asthma and COPD, as well as continues to smoke up to 1 pack/day for over 45 years. She says she ran out of her nebulizer solution and albuterol MDI over the past few days. She presented to the emergency department yesterday, was provided breathing treatments and steroids, and sent home with the same. She says she went to the pharmacy to fill those. However, she says that the nebulizer solution was unfamiliar to her and did not seem to help throughout today. She says her shortness of breath is worse with ambulation and that she has a mild cough. She also says that she has some concerns about falling, primarily when she becomes acutely SOB. She denies any recent fevers or chills, chest pain, feeling of a recent illness, or any other acute concerns. PMH includes asthma and COPD. PSH includes tubal ligation, inguinal hernia repair, breast biopsy. Social history includes daily smoker about 1 pack/day since age 16. Denies alcohol use. Lives at home with her daughter, nephews, and daughter's boyfriend. PCP is Dr. Alesha Means. Admission Exam Per Admitting Provider GENERAL: Awake, alert, well-appearing, nasal cannula oxygen in place, speaking in full sentences, does not appear in any acute distress (respiratory or otherwise). Thin habitus. HENT: Normocephalic, atraumatic. Oropharynx unremarkable. EYES: Normal conjunctiva. Sclera non-icteric. NECK: Inspection normal. Non-tender. Supple and full ROM. No nuchal rigidity. CARDIAC: +S1S2 RRR, no murmurs. RESPIRATORY: Diffuse inspiratory and expiratory wheezing. Normal respiratory effort. Nasal cannula oxygen in place. GI: +BS, soft, non-distended. No tenderness to palpation. No rebound or guarding. EXTREMITIES: No pedal edema or calf tenderness. Moving all extremities naturally and easily. NEURO: No gross neuro deficits. Principal Diagnosis COPD Exacerbation Discharge Exam General: Resting comfortably in no apparent distress; A&OX3 HEENT: NC/AT; PERRLA with EOMI; Ai conjunctiva, MMM. Neck: Supple and nontender Cardiac: RRR Lungs: on 3L via NC; scattered wheezing throughout Abdomen: Bowel normoactive X 4; Nontender to palpation Extremities: Warm. No edema present Neuro: No focal weakness Skin: No rash Discharge Data Allergies Allergy/AdvReac Type Severity Reaction Status Date / Time No Known Allergies Allergy Unverified 01/29/19 18:06 Consultations 01/29/19 19:42 ED Decision to Admit Stat Ordered Studies CXR 01/28 and 01/2902/01/19 13:58 CT head/brain wo con Urgent 02/01/19 14:07 CT angio chest PE protocol Urgent Hospital Course (1) COPD exacerbation: Pt. was admitted for a COPD exacerbation. CXR showed no infiltrate, stable emphysema changes. Pt. was placed on Solu-medrol 40 mg IV q8hr and Duonebs q6hr. Doxycycline was started; pt. will complete a 7 day course. Home Advair was continued. Pt. was weaned back to 3L via NC. CT of chest was completed prior to discharge. She was stable for discharge to home on 02/01 and will complete a Prednisone taper. Pt. has a nebulizer machine at home. Will f/u with PCP in 1-2 weeks. (2) Asthma: Advair was continued as prescribed. (3) Falls: Pt. has been falling at home, last fall ~1 month ago. She has frequent head injuries reported during falls. Complained of frontal headaches over the last month. Neuro exam was negative. CT of head was negative for acute abnormalities. Elavil 10 mg daily was started for headaches. Will need to follow up with PCP as outpatient. (4) Hypercholesteremia: Statin was continued as prescribed. (5) Osteoporosis: Continued alendronate. (6) Weight loss: Pt has lost ~20 lbs over the last 2-3 months. She has 2 lung nodules noted on CT chest; will need follow up imaging in 6 months. Also recommend screening mammogram and colonoscopy within the next few months. Will need to follow up with her PCP to discuss screening tests. (7) Abnormal chest CT: Has [address] of chest in setting of long standing tobacco abuse and weight loss. Will need follow up chest imaging in 6 months. (8) Headache: Pt. has had intermittent headaches over the last month following frequent falls at home with associated head injuries. May be related to post concussion syndrome. CT of head was negative. Elavil 10 mg daily was started. She was also instructed to take Tylenol or Ibuprofen for pain relief as needed/use ice packs if beneficial.' (9) DVT prophylaxis: Lovenox was ordered. Pt. was stable for discharge to home on 02/01/2019. Total Time Total Time Spent Total Time Spent (In Minutes): >30 minutes Total Time Includes: Examination of the Patient, Discharge Planning, Medication Reconciliation, Communication With Other Providers and Other Discharge Plan Discharge Items Patient Disposition: Home - Home Health Services Reason For Visit: COPD EXACERBATION Discharge Diagnosis: COPD Exacerbation Condition: Good Discharge Goals: Diagnostic testing, Improve disease control, Improve function, Increase independence, Improve nutritional status and Prevent disease Activity: As commented below Exercise/Sports: Gradually increase as tolerated Non-emergency contact: Primary Care Provider Call non-emergency contact if: you have any medication questions, your symptoms worsen and you have a fever Follow-up/Referrals: Alesha Means PA-C [Primary Care Provider] - Diet: Regular Addtl Provider Instructions: 1. COPD Exacerbation * You were admitted for a flare up of COPD; please continue home oxygen via nasal cannula. * Please take Prednisone taper as follows: - Prednisone 60 mg daily x 2 days starting tomorrow (02/02 and 02/03) - Prednisone 50 mg daily x 2 days (02/04 and 02/05) - Prednisone 40 mg daily x 1 day (02/06) - Prednisone 30 mg daily x 1 day (02/07) - Prednisone 20 mg daily x 1 day (02/08) - Prednisone 10 mg daily x 1 day (02/09) * Please take Doxycycline 100 mg twice daily to complete a 7 day course. * Please continue nebulizers every 6 hours as needed for shortness of breath at home. * Please schedule a follow up with your primary care provider in 7-10 days. 2. Headaches * CT of the head/brain was negative during this admission. * Please discuss frequent headaches with your primary care provider. * You may take over the counter pain relievers for headaches -- Ibuprofen 400 mg every 6 hours or Tylenol every 6-8 hours as needed for pain. * Elavil 10 mg daily has been started for headaches. Prescription was sent to your pharmacy. * Please drink plenty of water, at least 8 glasses/day, to prevent dehydration. * You can also utilize non-pharmacologic interventions, including ice packs and peppermint oil, for headaches. 3. Please call your family practice provider or go to the ER if you develop the following: * Chest pain or increased shortness of breath. * Nausea/vomiting or severe watery diarrhea. Prescriptions: New prednisone 10 mg tablet 60 mg PO DAILY Qty: 32 RF: 0 amitriptyline 10 mg Tablet 10 mg PO DAILY 30 Days Qty: 30 RF: 1 Continued fluticasone-salmeterol [Advair Diskus] 250-50 mcg/dose blister with device 1 puff Inhalation BID RF: 0 ipratropium-albuterol 0.5 mg-3 mg(2.5 mg base)/3 mL solution for nebulization 1 vial Inhalation Q4H RF: 0 alendronate 70 mg tablet 70 mg PO WK RF: 0 simvastatin 10 mg tablet 10 mg PO HS RF: 0 aspirin 81 mg Tablet,Delayed Release (Dr/Ec) 81 mg PO QAM RF: 0 potassium chloride 20 mEq/15 mL liquid 7.5 ml PO QAM RF: 0 albuterol sulfate [Ventolin HFA] 90 mcg/actuation HFA aerosol inhaler 2 - 4 puff Inhalation Q6H PRN (Reason: Shortness Of Breath Or Wheezing) RF: 0 albuterol sulfate 2.5 mg /3 mL (0.083 %) solution for nebulization 1.25 mg INH Q6H PRN (Reason: bronchospasm) Qty: 75 RF: 0 Discontinued prednisone 50 mg tablet 50 mg PO DAILY 5 Days Qty: 5 RF: 0 Stand-Alone Forms: [facility] Discharge Orders: Discharge Order (Routine); Ordered 02/01/19 Ordered By: Yesy Zavaleta Admission Data Admit Date/Time: 02/01/19 09:54 Attending Provider: Prasad Pantoja Admit Provider: Santo Herman Primary Care Provider: Alesha eMans Service: Medical Other Interventions: Discharge Summary Assessment (RN) Last Done: 02/01/19 16:02 Pending Studies at Discharge: No DC Date/Time DO NOT enter until pt leaves facility: 02/01/19 17:33 Supervising Physician Co-Signing Physician Notes Attending Attestation: Pt seen/examined, chart reviewed in detail, discharge care plan d/w AMY Zavaleta. I agree w/ the delacruz components of her discharge documentation. 63yo female with chronic hypoxic respiratory failure on home o2 due to COPD who presented with COPD exacerbation. Improved quickly with use of IV steroids and supportive care. Equally as distressful to her have been daily headaches since a head injury from fall several weeks prior to admission. CT head obtained - negative for ICH or other acute process. CT chest also obtained due to progressive weight loss - see Ms. Zavaleta's documentation. Pt will need f/u for headaches (this may be post-concussive syndrome) and weight loss. Pt will take prednisone taper for COPD at d/c. Discharge exam: gen - NAD, thin mouth - MMM heart- RRR, s1, s2 lungs - CTA b/l, decreased BS b/l, no rales abd - soft, NT, ND, BS+ ext - no edema Prasad Pantoja MD
[2019-02-02] MEDS ORDERED: predniSONE 20 MG TAB PO SCH (09:00)
[2019-02-05] MEDS ORDERED: ALENDRONATE SODIUM 70 MG TAB PO SCH (06:30)
== END 2019-02-01 17:33 | disposition home health service (06) | DRG 191 ==
LOC: 4E 17:38 → ED 17:38 → SUATTDRO 22:19 → 4E 23:40
DX: F07.81 Postconcussional syndrome; R53.81 Other malaise; R51 Headache; J44.1 Chronic obstructive pulmonary disease with (acute) exacerbation; Z79.899 Other long term (current) drug therapy; R09.02 Hypoxemia; R29.6 Repeated falls; Z68.1 Body mass index [BMI] 19.9 or less, adult; R91.8 Other nonspecific abnormal finding of lung field; Z79.51 Long term (current) use of inhaled steroids; R63.4 Abnormal weight loss; F17.210 Nicotine dependence, cigarettes, uncomplicated; M81.0 Age-related osteoporosis without current pathological fracture; Z79.82 Long term (current) use of aspirin; E78.00 Pure hypercholesterolemia, unspecified

== ENCOUNTER 2019-03-07 10:25 | Inpatient (IN) ==
[2019-03-07] MEDS ORDERED: ALBUT/IPRATROP 3MG/0.5MG NEB 3 ML VIAL NEB ONE ×2 (10:31→10:33)
[2019-03-07] MEDS ORDERED: MAGNESIUM SULFATE / D5W 1 GM/100 ML BAG IV ONE (10:32)
[2019-03-07] MEDS ORDERED: SODIUM CHLORIDE 0.9% 1000ML 1,000 ML IV SCH ×2 (10:45→17:15)
--- NOTE | 2019-03-07 10:49 | XRay Report ---
XR chest 1V portable CLINICAL HISTORY: Chest Pain dyspnea COMPARISON STUDY: 01/29/2019 FINDINGS: Diffuse Baseline emphysematous change. Increased prominence of pulmonary vasculature. Inter stitial change at both lung bases. IMPRESSION: Emphysematous change. Developing congestive failure. The above report was generated using voice recognition software. It may contain grammatical, syntax or spelling errors. Electronically signed by: Eric Esquivel M.D. 03/07/2019 10:47 AM
[2019-03-07] MEDS ORDERED: FUROSEMIDE 40 MG/4 ML VIAL IV STA (11:03)
[2019-03-07 11:34] LABS: Basophils # (auto) 0.03 K/uL (0-0.2); Basophils % (auto) 0.2 %; Hematocrit (blood only) 35.2 % (37-47); Immature Granulocytes # (auto) 0.04 K/uL (0.00-0.02); Immature Granulocytes % (auto) 0.2 %; Lymphocytes # (auto) 0.92 K/uL (1.2-3.4); Lymphocytes % (auto) 5.4 %; Mean Corpuscular Hgb Conc 31.3 g/dL (32-36); Mean Corpuscular Volume 97.2 fL (80-100); Mean Platelet Volume 9.6 fL (7.4-10.4); Monocytes # (auto) 1.26 K/uL (0.11-0.59); Monocytes % (auto) 7.4 %; Neutrophils # (auto) 14.74 K/uL (1.4-6.5); Neutrophils % (auto) 86.8 %; Platelet Count 358 K/uL (130-400); RDW Coefficient of Variation 14.2 % (11.5-14.5); RDW Standard Deviation 50.6 fL (36.4-46.3); Red Blood Count 3.62 M/uL (4.2-5.4); White Blood Count 16.99 K/uL (4.8-10.8)
[2019-03-07] MEDS ORDERED: LEVOFLOXACIN/D5W 750 MG/150 ML BAG IV STA (11:36)
[2019-03-07] MEDS ORDERED: PIPERACILL/TAZOBAC CONSULT ACTIVE PRN ×2 (11:36→16:23)
[2019-03-07] MEDS ORDERED: PIPERACILLIN/TAZOBACTAM 4.5 GM/120 ML BAG IV ONE (11:36)
[2019-03-07] MEDS ORDERED: VANCOMYCIN CONSULT ACTIVE PRN ×2 (11:36→16:03)
[2019-03-07] MEDS ORDERED: ACETAMINOPHEN 500 MG TAB PO STA (11:36)
[2019-03-07] MEDS ORDERED: ACETAMINOPHEN 1,000 MG/100 ML VIAL IV STA (11:36)
[2019-03-07] MEDS ORDERED: VANCOMYCIN HCL 1,000 MG in SODIUM CHLORIDE 0.9% 500 ML IV ONE (11:36)
[2019-03-07 11:38] LABS: HCO3 ABG 36 mmol/L (19-24); PCO2 ABG 87 mmHg (35-46); PO2 ABG 113 mm/Hg (80-95); pH ABG 7.23 (7.35-7.45)
[2019-03-07 11:39] LABS: Allen Test Pos (Pos)
[2019-03-07 11:51] LABS: Albumin Level 2.5 gm/dl (3.4-5.0); BUN Creatinine Ratio 35.7 (10-20); Calcium 7.4 mg/dl (8.5-10.1); Creatinine Clr Calc Pharmacy 79.2 ml/min; Est GFR (African American) 116.2; Est GFR (Non-African American) 100.3; Potassium 4.1 mmol/L (3.5-5.1)
[2019-03-07 12:01] LABS: Albumin Globulin Ratio 0.6 (0.9-2); Bilirubin,Total 0.4 mg/dl (0.2-1); Creatine Kinase MB 1.8 ng/ml (0.5-3.6); Total Protein 6.5 gm/dl (6.4-8.2); Troponin I 0.203 ng/ml (0-0.045)
[2019-03-07] MEDS ORDERED: IOVERSOL 100ml IV PRN (12:39)
--- NOTE | 2019-03-07 12:44 | CT Scan Report ---
CT head/brain wo con CT DOSE: HISTORY: Mental status change Pt c/O AMS TECHNIQUE: Multiaxial CT images of the head were performed without the use of intravenous contrast. A dose lowering technique was utilized adhering to the principles of ALARA. Comparison: None. Findings: The paranasal sinuses and mastoid air cells are clear. The calvarium and skull base are int act. The ventricles and sulci are within normal limits. There is no mass, hematoma, midline shift, or acute infarct. Impression: No acute intracranial abnormality. The above report was generated using voice recognition software. It may contain grammatical, syntax or spelling errors. Electronically signed by: Eric Esquivel M.D. 03/07/2019 12:41 PM
--- NOTE | 2019-03-07 12:47 | CT Scan Report ---
CT angio chest PE protocol CT DOSE: 1284.30 mGy.cm HISTORY: Chest pain. Dyspnea. PE TECHNIQUE: Multiaxial CT images of the chest were performed following the intravenous administration of contrast to evaluate the pulmonary arteries. Maximal intensity projection images were also obtaine d. A dose lowering technique was utilized adhering to the principles of ALARA. COMPARISON STUDY: None. FINDINGS: The thoracic aorta is normal in course and caliber. No evidence for aneurysm or dissection. Several mediastinal and hilar nodes measuring up to 1.1 cm. Lung parenchyma demonstrates moderate parenchymal emphysematous change. Scattered bibasilar parenchym al atelectatic changes. No evidence for well-defined focal infiltrative process. IMPRESSION: 1. No evidence of pulmonary embolus. 2. Emphysematous change. 3. Scattered bibasilar minimal atelectatic changes. 4. Several small mediastinal and/or hilar nodes with a 4 to six-month follow-up CT scan recommended The above report was generated using voice recognition software. It may contain grammatical, syntax or spelling errors. Electronically signed by: Eric Esquivel M.D. 03/07/2019 12:46 PM
[2019-03-07 13:00] LABS: Influenza A virus by PCR Neg for Influ A (Neg); Influenza B virus by PCR Neg for Influ B (Neg)
--- NOTE | 2019-03-07 13:25 | History & Physical Report ---
Date of Service March 07, 2019 Assessment & Plan (1) COPD exacerbation: 63 y/o F Hx advanced COPD - dependent on 3L 02, HLD, hypokalemia - continues to smoke cigarettes. Admitted one month prior for COPD exacerbation. The pt presents with progressive SOB and a cough x 3 days. She has also been somnolent and lethargic per her housemate. Her housemate had been urging her to go to the ER or an urgent care center, however, the pt refused to do so until today when she developed respiratory distress. On arrival to her home, EMS reported that her 02 saturation was 65%. She was placed on BiPAP and transported to the ER. She was febrile on arrival although she could not confirm prior fevers. An initial ABG obtained while she was on BiPAP displayed significant C02 retention with mild hypoxia. Initial labs are notable for an elevated troponin and protein malnutrition. A CTA was obtained and failed to demonstrate evidence of PNM. The pt is a poor historian and was repeatedly falling asleep when I tried to question her. Her housemate provided the preceding information. 1) End-stage COPD with acute exacerbation - pt is on BiPAP, scheduled nebs, Abx, IV Steroids. Her medium-term prognosis may be poor at this point. ABG will be trended due to hypercarbia. 2) Fever - source is unclear - may be a viral URI. As her trop is elevated, we would have to entertain the possibility of endocarditis. An echo an blood cultures have been ordered. Antibiotics provided for COPD exacerbation regardless, however we will add coverage for naive endocarditis in the form of Vancomycin until blood cultures return. 3) Elevated trop - despite her fever, this would be more likely due to demand ischemia considering presumed prolonged hypoxia over the past few days prior to arrival in the ER. An echo is pending. She will be fully anticoagulated in the interim as I do not see any contraindications for this. 4) Hypokalemia - K WNL on admission - cont supplements 5) HLD - cont Zocor 6) Malnourished - 2/2 COPD - supplements when tolerating PO Full code - Lovenox anticoagulation Total time for this admit including review of labs, meds, imaging, records - discussion with pt and ER attending - inc critical care time - 45 min Present on Admission?: Yes History of Present Illness Chief Complaint: Shortness of breath Primary Care Provider: Alesha Means 63 y/o F Hx advanced COPD - dependent on 3L 02, HLD, hypokalemia - continues to smoke cigarettes. Admitted one month prior for COPD exacerbation. The pt presents with progressive SOB and a cough x 3 days. She has also been somnolent and lethargic per her housemate. Her housemate had been urging her to go to the ER or an urgent care center, however, the pt refused to do so until today when she developed respiratory distress. On arrival to her home, EMS reported that her 02 saturation was 65%. She was placed on BiPAP and transported to the ER. She was febrile on arrival although she could not confirm prior fevers. An initial ABG obtained while she was on BiPAP displayed significant C02 retention with mild hypoxia. Initial labs are notable for an elevated troponin and protein malnutrition. A CTA was obtained and failed to demonstrate evidence of PNM. The pt is a poor historian and was repeatedly falling asleep when I tried to question her. Her housemate provided the preceding information. PMH: 1) Advanced COPD - 3L 02, malnourished 2) HLD 3) Hypokalemia 4) Smoker 5) Protein malnutrition Surgical: Denies Family: Not known, however, mother had COPD - did not now biological father Social: 40+ year history - recently smoking 2-3 cigarettes daily. Does not drink alcohol. Allergies Allergy/AdvReac Type Severity Reaction Status Date / Time No Known Allergies Allergy Unverified 03/07/19 12:24 Home Medications Home Medications Medication Instructions Recorded Confirmed Type albuterol sulfate [Ventolin HFA] 2 - 4 puff INHALATION Q6H PRN 01/28/19 03/07/19 History alendronate 70 mg PO WK 01/28/19 03/07/19 History aspirin 81 mg PO QAM 01/28/19 03/07/19 History fluticasone propion-salmeterol 1 puff INHALATION BID 01/28/19 03/07/19 History [Advair Diskus] ipratropium-albuterol 1 vial INHALATION Q4H 01/28/19 03/07/19 History potassium chloride 7.5 ml PO QAM 01/28/19 03/07/19 History simvastatin 10 mg PO HS 01/28/19 03/07/19 History amitriptyline 10 mg PO DAILY 30 Days #30 tab 02/01/19 03/07/19 Rx cholecalciferol (vitamin D3) 1,000 unit PO DAILY 03/07/19 03/07/19 History [Vitamin D3] Past Med/Surg History Medical History Asthma COPD (chronic obstructive pulmonary disease) Surgical History History of hernia repair History of tubal ligation Family History Other Family history non-contributory Social History Preferred Language: Bahamian Beliefs That Will Affect Care: None marital status: Single Current Living Situation: Family Feels Safe at Home: Yes Smoking Status: Former smoker Hx Alcohol Use: No Hx Substance Use: No Review of Systems Could not obtain from pt - c/o SOB only - no reported fevers or CP - per HPI Physical Exam Vital Signs (Past 24 Hours): Last Vital Signs Temp 37.3 C 03/07/19 12:55 Pulse 96 H 03/07/19 12:55 Resp 20 03/07/19 12:55 BP 115/68 03/07/19 12:55 Pulse Ox 95 03/07/19 12:55 Physical Exam: General: Somnolent, emaciated, middle-aged F - no distress on BiPAP ENT: No erythema or exudates, no thrush Eyes: IVY, EOMI Head and neck: Normocephalic, atraumatic, No JVD, neck is supple. Chest/heart: Nontender, S1,2, R, faint, no murmurs, no gallops Lungs: Very poor air movement - no cler wheezing - exam is limited due to BiPAP Abdomen: Nontender, nondistended, BS+ Neuro: AAO x 3, speech is clear, no unilateral weakness or loss of sensation, coordination intact Musculoskeletal: No joint inflammation, muscle tenderness, FROM Skin: No acute rashes or ulcers Extremities: No clubbing, cyanosis, edema Results & Data Diagnostic Findings CTA: 1. No evidence of pulmonary embolus. 2. Emphysematous change. 3. Scattered bibasilar minimal atelectatic changes 4. Several small mediastinal and/or hilar nodes with a 4 to six-month follow-up CT scan recommended
[2019-03-07] MEDS ORDERED: ENOXAPARIN 1 MG/KG SQ SCH (16:00)
[2019-03-07] MEDS ORDERED: ICU PROTOCOL FOR HYPERGLYCEMIA PRN (16:03)
[2019-03-07] MEDS ORDERED: ALBUTEROL 0.083% NEBU SOLN 3 ML VIAL NEB PRN (16:03)
[2019-03-07] MEDS ORDERED: D5NSS + 20MEQ KCL 20 MEQ/1,000 ML BAG IV SCH (16:30)
[2019-03-07 16:36] LABS: iSTAT Allen Test Pass; iSTAT FiO2 40 %; iSTAT Site L Radial; iSTAT Venous Carbon Dioxide 39 mEq/l (24-31)
[2019-03-07] MEDS: ALBUT/IPRATROP 3MG/0.5MG NEB 3 ML VIAL NEB SCH ×2 (16:48→18:49)
[2019-03-07 16:59] LABS: Appearance Urine Clear (Clear); Bacteria Urine Automated Negative (Negative); Bilirubin Urine Negative (Negative); Blood Urine 1+ (Negative); Color Urine Yellow; Glucose Urine UA Negative (Negative); Ketones Urine Negative (Negative); Leukocyte Esterase Urine Negative (Negative); Nitrite Urine Negative (Negative); Protein Urine Negative (Negative); Specific Gravity Urine 1.032 (1.000-1.030); Urobilinogen Urine Negative (Negative); WBC Urine Automated 0 /hpf (0-5)
--- NOTE | 2019-03-07 17:50 | Critical Care Consultation ---
Date of Consultation March 07, 2019 Assessment & Plan (1) Admitted to intensive care unit: Reason Critically Ill: 63-year-old female with acute on chronic hypercarbic hypoxic respiratory failure PLAN: Neuro: Acute encephalopathy -Likely metabolic, CO2 narcosis Resp: Acute hypoxic hypercarbic respiratory failure on chronic respiratory failure -BiPAP noninvasive ventilation is maximum therapy -Minimal improvement in blood gas while on BiPAP ventilation -I am concerned the patient has entered a end-stage medical condition without meaningful chance of recovery given the minimal improvement with maximum therapy allowed by her wishes CV: Elevated troponins -Continue to trend -Suspect type II ischemia Fluids/Renal: Elevated bicarb -Consistent with chronic respiratory acidosis sensation ID: Febrile illness -Patient on Zosyn, vancomycin, doxycycline for severe community-acquired pneumonia GI/Nutrition: BMI 19 -Sarcopena/protein calorie malnutrition: COPD related Heme: Anemia -Therapeutic anticoagulation with Lovenox DVT prophylaxis: Lovenox Endocrine: ICU hyperglycemia protocol Solu-Medrol IV Vascular access: Peripheral IVs Code Status: DNR/DNI Had an extensive discussion with the patient's family, all are in agreement that the patient would not want heroic measures undertaken nor intubation. We discussed possible advanced vascular access for vasoactive medications and again the family feels that is not consistent with her wishes. I advised them I feel this is in end-stage terminal condition given that the patient does not want advanced therapies (I was also arturo that these advanced therapies do not guarantee improvement in her clinical condition) family agreed the long-term focus was her functional status and they state her functional status is something that has been she has not been happy with for a long time. Accordingly we will not escalate therapies at this time, they are attempting to contact other sisters and have them present come to the bedside. I have personally spent 50 minutes of critical care time in the direct management of this patient. This is a life/limb threatening event. This includes time spent evaluating patient, direct bedside care, chart review, placing orders, interpretation of diagnostic studies, discussion with consultants, patient, and/or family members regarding treatment decisions, as well as other required patient management activities. This time is exclusive of all separately billable procedures, and teaching time and separate from and in addition to any other critical care service time. Present on Admission?: Yes History of Present Illness Attending Physician: Carlos Ramirez MD 63-year-old female with oxygen dependent COPD (3 L cold (who continues to smoke admitted for the third time since the beginning of this year. She has had progressive shortness of breath with cough for the past 3 days, she was resistant to come to the emergency room until today when she developed respiratory distress and decreased mental status. In the emergency department she was found to be febrile and hypoxic on supplemental oxygen. She was started on noninvasive mechanical ventilation; the patient is DO NOT RESUSCITATE in event of cardiac arrest and she has previously confirmed with her entire family that she would not want intubation in event of respiratory insufficiency. Allergies Allergy/AdvReac Type Severity Reaction Status Date / Time No Known Allergies Allergy Unverified 03/07/19 12:24 Home Medications Home Medications Medication Instructions Recorded Confirmed Type albuterol sulfate [Ventolin HFA] 2 - 4 puff INHALATION Q6H PRN 01/28/19 03/07/19 History alendronate 70 mg PO WK 01/28/19 03/07/19 History aspirin 81 mg PO QAM 01/28/19 03/07/19 History fluticasone propion-salmeterol 1 puff INHALATION BID 01/28/19 03/07/19 History [Advair Diskus] ipratropium-albuterol 1 vial INHALATION Q4H 01/28/19 03/07/19 History potassium chloride 7.5 ml PO QAM 01/28/19 03/07/19 History simvastatin 10 mg PO HS 01/28/19 03/07/19 History amitriptyline 10 mg PO DAILY 30 Days #30 tab 02/01/19 03/07/19 Rx cholecalciferol (vitamin D3) 1,000 unit PO DAILY 03/07/19 03/07/19 History [Vitamin D3] Patient History Medical History Asthma COPD (chronic obstructive pulmonary disease) Surgical History History of hernia repair History of tubal ligation Family History Other Family history non-contributory Social History Preferred Language: Azerbaijani Communication Ability: lethargic Cloak Room Attendant Required: No Beliefs That Will Affect Care: None marital status: Single Current Living Situation: Family Current Living Situation Comment: lives with daughter Other Information That Helps Us Care for You: No Feels Safe at Home: Yes Safety Concerns: Feels Safe At This Time Smoking Status: Current every day smoker Hx Alcohol Use: No Hx Substance Use: No Review of Systems Unable to obtain secondary to patient condition: Encephalopathy Physical Exam Vital Signs (Past 24 Hours): Last Vital Signs Temp 36.6 C 03/07/19 15:43 Pulse 81 03/07/19 16:48 Resp 16 03/07/19 16:48 BP 81/46 L 03/07/19 16:15 Pulse Ox 95 03/07/19 16:48 General: Glascow Coma Scale: Eyes: 1, Verbal 2, Motor 4, Total 7. Skin: Warm, dry, Head: Atraumatic Ears, nose, mouth and throat: airway patent dry mucous membranes Cardiovascular: Decreased peripheral perfusion Respiratory: Poor respiratory mechanics, rhonchorous sounds laterally Gastrointestinal: Non distended Musculoskeletal: No deformity Results & Data Laboratory Results 03/07/19 03/07/19 03/07/19 Range/Units 16:35 16:33 16:24 WBC (4.8-10.8) K/uL RBC (4.2-5.4) M/uL Hgb (12.0-16.0) g/dL Hct (37-47) % MCV (80-100) fL MCH (25-34) pg MCHC (32-36) g/dL RDW Std Deviation (36.4-46.3) fL RDW Coeff of Maria D (11.5-14.5) % Plt Count (130-400) K/uL MPV (7.4-10.4) fL Immature Gran % (Auto) % Neut % (Auto) % Lymph % (Auto) % [place] % (Auto) % Eos % (Auto) % Baso % (Auto) % Immature Gran # (Auto) (0.00-0.02) K/uL Neut # (Auto) (1.4-6.5) K/uL Lymph # (Auto) (1.2-3.4) K/uL [place] # (Auto) (0.11-0.59) K/uL Eos # (Auto) (0-0.5) K/uL Baso # (Auto) (0-0.2) K/uL Sample Site ABG pH (7.35-7.45) ABG pCO2 (35-46) mmHg ABG pO2 (80-95) mm/Hg ABG HCO3 (19-24) mmol/L ABG O2 Saturation (90-95) % ABG Base Excess (-9-1.8) mEq/L Freedom Test (Pos) POC VBG pH (7.36-7.41) POC VBG pCO2 (38-50) mmHg POC VBG pO2 (30-55) mmHg POC VBG HCO3 (23-28) meq/L POC VBG Total CO2 (24-31) mEq/l POC Venous O2 Sat (70-80) % POC VBG Base Excess meq/L Barometric Pressure mm/Hg Oxygen Given O2 Delivery Device POC O2 Rate POC FiO2 % IPAP Sodium (136-145) mmol/L Potassium (3.5-5.1) mmol/L Chloride (98-107) mmol/L Carbon Dioxide (21-32) mmol/L Anion Gap (3-11) BUN (7-18) mg/dl Creatinine (0.6-1.2) mg/dl Est Cr Clr Drug Dosing ml/min Est GFR ( Amer) Est GFR (Non-Af Amer) BUN/Creatinine Ratio (10-20) Glucose (70-99) mg/dl POC Glucose 101 H (70-99) Calcium (8.5-10.1) mg/dl Total Bilirubin (0.2-1) mg/dl AST (15-37) U/L ALT (12-78) U/L Alkaline Phosphatase (45-117) U/L Total Creatine Kinase (26-192) U/L CK-MB (CK-2) (0.5-3.6) ng/ml CK/CKMB % Calc (0-3.0) Troponin I (0-0.045) ng/ml NT-Pro-B Natriuret Pep (0-900) pg/ml Total Protein (6.4-8.2) gm/dl Albumin (3.4-5.0) gm/dl Globulin (2.5-4.0) gm/dl Albumin/Globulin Ratio (0.9-2) Lipase (73-393) U/L Procalcitonin 0.23 (0-0.5) ng/ml Urine Color Yellow Urine Appearance Clear (Clear) Urine pH 5.0 (4.5-7.5) Ur Specific [place] 1.032 H (1.000-1.030) Urine Protein Negative (Negative) Urine Glucose (UA) Negative (Negative) Urine Ketones Negative (Negative) Urine Blood 1+ H (Negative) Urine Nitrite Negative (Negative) Urine Bilirubin Negative (Negative) Urine Urobilinogen Negative (Negative) Ur Leukocyte Esterase Negative (Negative) Urine WBC (Auto) 0 (0-5) /hpf Urine RBC (Auto) 5-10 H (0-4) /hpf U Hyaline Cast (Auto) 1-5 (0-5) /lpf U Epithel Cells (Auto) 5-10 H (0-5) /lpf Urine Bacteria (Auto) Negative (Negative) Nasal Screen MRSA (PCR) Influenza Type A (PCR) (Neg) Influenza Type B (PCR) (Neg) 03/07/19 03/07/19 03/07/19 Range/Units 16:24 16:22 15:50 WBC (4.8-10.8) K/uL RBC (4.2-5.4) M/uL Hgb (12.0-16.0) g/dL Hct (37-47) % MCV (80-100) fL MCH (25-34) pg MCHC (32-36) g/dL RDW Std Deviation (36.4-46.3) fL RDW Coeff of Maria D (11.5-14.5) % Plt Count (130-400) K/uL MPV (7.4-10.4) fL Immature Gran % (Auto) % Neut % (Auto) % Lymph % (Auto) % [place] % (Auto) % Eos % (Auto) % Baso % (Auto) % Immature Gran # (Auto) (0.00-0.02) K/uL Neut # (Auto) (1.4-6.5) K/uL Lymph # (Auto) (1.2-3.4) K/uL [place] # (Auto) (0.11-0.59) K/uL Eos # (Auto) (0-0.5) K/uL Baso # (Auto) (0-0.2) K/uL Sample Site L Radial ABG pH (7.35-7.45) ABG pCO2 (35-46) mmHg ABG pO2 (80-95) mm/Hg ABG HCO3 (19-24) mmol/L ABG O2 Saturation (90-95) % ABG Base Excess (-9-1.8) mEq/L Freedom Test Pass (Pos) POC VBG pH 7.27 L (7.36-7.41) POC VBG pCO2 80 H (38-50) mmHg POC VBG pO2 47 (30-55) mmHg POC VBG HCO3 37 H (23-28) meq/L POC VBG Total CO2 39 H (24-31) mEq/l POC Venous O2 Sat 76.0 (70-80) % POC VBG Base Excess 9.0 meq/L Barometric Pressure mm/Hg Oxygen Given O2 Delivery Device BIPAP POC O2 Rate 12 POC FiO2 40 % IPAP 15 Sodium (136-145) mmol/L Potassium (3.5-5.1) mmol/L Chloride (98-107) mmol/L Carbon Dioxide (21-32) mmol/L Anion Gap (3-11) BUN (7-18) mg/dl Creatinine (0.6-1.2) mg/dl Est Cr Clr Drug Dosing ml/min Est GFR ( Amer) Est GFR (Non-Af Amer) BUN/Creatinine Ratio (10-20) Glucose (70-99) mg/dl POC Glucose (70-99) Calcium (8.5-10.1) mg/dl Total Bilirubin (0.2-1) mg/dl AST (15-37) U/L ALT (12-78) U/L Alkaline Phosphatase (45-117) U/L Total Creatine Kinase (26-192) U/L CK-MB (CK-2) (0.5-3.6) ng/ml CK/CKMB % Calc (0-3.0) Troponin I 0.156 H* (0-0.045) ng/ml NT-Pro-B Natriuret Pep (0-900) pg/ml Total Protein (6.4-8.2) gm/dl Albumin (3.4-5.0) gm/dl Globulin (2.5-4.0) gm/dl Albumin/Globulin Ratio (0.9-2) Lipase (73-393) U/L Procalcitonin (0-0.5) ng/ml Urine Color Urine Appearance (Clear) Urine pH (4.5-7.5) Ur Specific [place] (1.000-1.030) Urine Protein (Negative) Urine Glucose (UA) (Negative) Urine Ketones (Negative) Urine Blood (Negative) Urine Nitrite (Negative) Urine Bilirubin (Negative) Urine Urobilinogen (Negative) Ur Leukocyte Esterase (Negative) Urine WBC (Auto) (0-5) /hpf Urine RBC (Auto) (0-4) /hpf U Hyaline Cast (Auto) (0-5) /lpf U Epithel Cells (Auto) (0-5) /lpf Urine Bacteria (Auto) (Negative) Nasal Screen MRSA (PCR) Pending Influenza Type A (PCR) (Neg) Influenza Type B (PCR) (Neg) 03/07/19 03/07/19 03/07/19 Range/Units 11:30 11:22 11:22 WBC (4.8-10.8) K/uL RBC (4.2-5.4) M/uL Hgb (12.0-16.0) g/dL Hct (37-47) % MCV (80-100) fL MCH (25-34) pg MCHC (32-36) g/dL RDW Std Deviation (36.4-46.3) fL RDW Coeff of Maria D (11.5-14.5) % Plt Count (130-400) K/uL MPV (7.4-10.4) fL Immature Gran % (Auto) % Neut % (Auto) % Lymph % (Auto) % [place] % (Auto) % Eos % (Auto) % Baso % (Auto) % Immature Gran # (Auto) (0.00-0.02) K/uL Neut # (Auto) (1.4-6.5) K/uL Lymph # (Auto) (1.2-3.4) K/uL [place] # (Auto) (0.11-0.59) K/uL Eos # (Auto) (0-0.5) K/uL Baso # (Auto) (0-0.2) K/uL Sample Site ABG pH (7.35-7.45) ABG pCO2 (35-46) mmHg ABG pO2 (80-95) mm/Hg ABG HCO3 (19-24) mmol/L ABG O2 Saturation (90-95) % ABG Base Excess (-9-1.8) mEq/L Freedom Test (Pos) POC VBG pH (7.36-7.41) POC VBG pCO2 (38-50) mmHg POC VBG pO2 (30-55) mmHg POC VBG HCO3 (23-28) meq/L POC VBG Total CO2 (24-31) mEq/l POC Venous O2 Sat (70-80) % POC VBG Base Excess meq/L Barometric Pressure mm/Hg Oxygen Given O2 Delivery Device POC O2 Rate POC FiO2 % IPAP Sodium 140 (136-145) mmol/L Potassium 4.1 (3.5-5.1) mmol/L Chloride 103 (98-107) mmol/L Carbon Dioxide 37 H (21-32) mmol/L Anion Gap 0 L (3-11) BUN 19 H (7-18) mg/dl Creatinine 0.52 L (0.6-1.2) mg/dl Est Cr Clr Drug Dosing 79.2 ml/min Est GFR ( Amer) 116.2 Est GFR (Non-Af Amer) 100.3 BUN/Creatinine Ratio 35.7 H (10-20) Glucose 106 H (70-99) mg/dl POC Glucose (70-99) Calcium 7.4 L (8.5-10.1) mg/dl Total Bilirubin 0.4 (0.2-1) mg/dl AST 16 (15-37) U/L ALT 17 (12-78) U/L Alkaline Phosphatase 126 H (45-117) U/L Total Creatine Kinase 140 (26-192) U/L CK-MB (CK-2) 1.8 (0.5-3.6) ng/ml CK/CKMB % Calc 1.3 (0-3.0) Troponin I 0.203 H* (0-0.045) ng/ml NT-Pro-B Natriuret Pep Cancelled 821 (0-900) pg/ml Total Protein 6.5 (6.4-8.2) gm/dl Albumin 2.5 L (3.4-5.0) gm/dl Globulin 4.0 (2.5-4.0) gm/dl Albumin/Globulin Ratio 0.6 L (0.9-2) Lipase 36 L (73-393) U/L Procalcitonin (0-0.5) ng/ml Urine Color Urine Appearance (Clear) Urine pH (4.5-7.5) Ur Specific [place] (1.000-1.030) Urine Protein (Negative) Urine Glucose (UA) (Negative) Urine Ketones (Negative) Urine Blood (Negative) Urine Nitrite (Negative) Urine Bilirubin (Negative) Urine Urobilinogen (Negative) Ur Leukocyte Esterase (Negative) Urine WBC (Auto) (0-5) /hpf Urine RBC (Auto) (0-4) /hpf U Hyaline Cast (Auto) (0-5) /lpf U Epithel Cells (Auto) (0-5) /lpf Urine Bacteria (Auto) (Negative) Nasal Screen MRSA (PCR) Influenza Type A (PCR) Neg for Influ A (Neg) Influenza Type B (PCR) Neg for Influ B (Neg) 03/07/19 03/07/19 Range/Units 11:22 11:22 WBC 16.99 H (4.8-10.8) K/uL RBC 3.62 L (4.2-5.4) M/uL Hgb 11.0 L (12.0-16.0) g/dL Hct 35.2 L (37-47) % MCV 97.2 (80-100) fL MCH 30.4 (25-34) pg MCHC 31.3 L (32-36) g/dL RDW Std Deviation 50.6 H (36.4-46.3) fL RDW Coeff of Maria D 14.2 (11.5-14.5) % Plt Count 358 (130-400) K/uL MPV 9.6 (7.4-10.4) fL Immature Gran % (Auto) 0.2 % Neut % (Auto) 86.8 % Lymph % (Auto) 5.4 % [place] % (Auto) 7.4 % Eos % (Auto) 0.0 % Baso % (Auto) 0.2 % Immature Gran # (Auto) 0.04 H (0.00-0.02) K/uL Neut # (Auto) 14.74 H (1.4-6.5) K/uL Lymph # (Auto) 0.92 L (1.2-3.4) K/uL [place] # (Auto) 1.26 H (0.11-0.59) K/uL Eos # (Auto) 0.00 (0-0.5) K/uL Baso # (Auto) 0.03 (0-0.2) K/uL Sample Site ABG pH 7.23 L (7.35-7.45) ABG pCO2 87 H (35-46) mmHg ABG pO2 113 H (80-95) mm/Hg ABG HCO3 36 H (19-24) mmol/L ABG O2 Saturation 97.0 H (90-95) % ABG Base Excess 6.0 H (-9-1.8) mEq/L Freedom Test Pos (Pos) POC VBG pH (7.36-7.41) POC VBG pCO2 (38-50) mmHg POC VBG pO2 (30-55) mmHg POC VBG HCO3 (23-28) meq/L POC VBG Total CO2 (24-31) mEq/l POC Venous O2 Sat (70-80) % POC VBG Base Excess meq/L Barometric Pressure 726.0 mm/Hg Oxygen Given 40% O2 Delivery Device POC O2 Rate POC FiO2 % IPAP Sodium (136-145) mmol/L Potassium (3.5-5.1) mmol/L Chloride (98-107) mmol/L Carbon Dioxide (21-32) mmol/L Anion Gap (3-11) BUN (7-18) mg/dl Creatinine (0.6-1.2) mg/dl Est Cr Clr Drug Dosing ml/min Est GFR ( Amer) Est GFR (Non-Af Amer) BUN/Creatinine Ratio (10-20) Glucose (70-99) mg/dl POC Glucose (70-99) Calcium (8.5-10.1) mg/dl Total Bilirubin (0.2-1) mg/dl AST (15-37) U/L ALT (12-78) U/L Alkaline Phosphatase (45-117) U/L Total Creatine Kinase (26-192) U/L CK-MB (CK-2) (0.5-3.6) ng/ml CK/CKMB % Calc (0-3.0) Troponin I (0-0.045) ng/ml NT-Pro-B Natriuret Pep (0-900) pg/ml Total Protein (6.4-8.2) gm/dl Albumin (3.4-5.0) gm/dl Globulin (2.5-4.0) gm/dl Albumin/Globulin Ratio (0.9-2) Lipase (73-393) U/L Procalcitonin (0-0.5) ng/ml Urine Color Urine Appearance (Clear) Urine pH (4.5-7.5) Ur Specific [place] (1.000-1.030) Urine Protein (Negative) Urine Glucose (UA) (Negative) Urine Ketones (Negative) Urine Blood (Negative) Urine Nitrite (Negative) Urine Bilirubin (Negative) Urine Urobilinogen (Negative) Ur Leukocyte Esterase (Negative) Urine WBC (Auto) (0-5) /hpf Urine RBC (Auto) (0-4) /hpf U Hyaline Cast (Auto) (0-5) /lpf U Epithel Cells (Auto) (0-5) /lpf Urine Bacteria (Auto) (Negative) Nasal Screen MRSA (PCR) Influenza Type A (PCR) (Neg) Influenza Type B (PCR) (Neg) Diagnostic Findings CT angio chest PE protocol CT DOSE: 1284.30 mGy.cm HISTORY: Chest pain. Dyspnea. PE TECHNIQUE: Multiaxial CT images of the chest were performed following the intravenous administration of contrast to evaluate the pulmonary arteries. Maximal intensity projection images were also obtained. A dose lowering technique was utilized adhering to the principles of ALARA. COMPARISON STUDY: None. FINDINGS: The thoracic aorta is normal in course and caliber. No evidence for aneurysm or dissection. Several mediastinal and hilar nodes measuring up to 1.1 cm. Lung parenchyma demonstrates moderate parenchymal emphysematous change. Scattered bibasilar parenchymal atelectatic changes. No evidence for well- defined focal infiltrative process. IMPRESSION: 1. No evidence of pulmonary embolus. 2. Emphysematous change. 3. Scattered bibasilar minimal atelectatic changes. 4. Several small mediastinal and/or hilar nodes with a 4 to six-month follow-up CT scan recommended The above report was generated using voice recognition software. It may contain grammatical, syntax or spelling errors. Electronically signed by: Eric Esquivel M.D. 03/07/2019 12:46 PM
[2019-03-07] MEDS ORDERED: DOXYCYCLINE HYCLATE 100 MG in DEXTROSE 5% 100 ML IV SCH (18:00)
[2019-03-07] MEDS ORDERED: ENOXAPARIN INJ 60 MG/0.6 ML SYR SQ SCH (18:00)
[2019-03-07] MEDS ORDERED: PIPERACILLIN/TAZOBACTAM 3.375 GM in DEXTROSE 5% 100 ML IV SCH (18:00)
[2019-03-07] MEDS ORDERED: methylPREDNISolone 40 MG in SYRINGE 0 ML IV SCH (18:00)
--- NOTE | 2019-03-07 18:12 | Pharmacy Report ---
Pharmacy Abx Dose Short Note - Date of Service March 07, 2019 - Assessment & Plan Assessment 63 year old F receiving vanco/zosyn/doxy for treatment of pulm source. Her renal fxn looks to be at baseline: pt population p'kinetics: t1/2=10hr, ke=0.069. I ordered a MRSA nasal swab and PCT x2 in an effort to aid in antibx de- escalation. Day # 1/7 of antimicrobial therapy. Plan Vancomycin * Vanco 1000mg (21mg/kg) x1 in ED to quickly achieve a therapeutic peak * vanco 750mg (16mg/kg) q12 set to start 12 hours after the end of the loading dose * goal trough 15-20mcg/mL * trough to be drawn at [facility], 03/09/19 @1330 Zosyn * appropriately dosed pursuant to pt's clinical status and eCrCl>20cc/min Pharmacy will continue to follow and will adjust dose/frequency as necessary. Thank you.
[2019-03-07] MEDS ORDERED: MoRPHine SULFATE 2 MG/ML CARP IV PRN ×2 (18:35→19:19)
[2019-03-07] MEDS ORDERED: MoRPHine SULF/NSS 250 MG/250 ML BTL IV PRN (18:45)
[2019-03-07] MEDS ORDERED: SCOPOLAMINE 1.5 MG TDSY TD SCH (19:00)
[2019-03-07] MEDS ORDERED: SIMVASTATIN 10 MG TAB PO SCH (21:00)
[2019-03-07] MEDS: CHECK SCOPOLAMINE PATCH PLACEMENT SCH (23:34)
[2019-03-08] MEDS ORDERED: VANCOMYCIN HCL 750 MG in SODIUM CHLORIDE 0.9% 250 ML IV SCH (02:00)
[2019-03-08] MEDS: CHECK SCOPOLAMINE PATCH PLACEMENT SCH ×2 (08:08→14:40)
[2019-03-08] MEDS ORDERED: AMITRIPTYLINE HCL 10 MG TAB PO SCH (09:00)
[2019-03-08] MEDS ORDERED: ASPIRIN 81 MG ECTAB PO SCH (09:00)
--- NOTE | 2019-03-08 12:20 | Palliative Care Consultation ---
Date of Consultation March 08, 2019 Assessment & Plan (1) Goals of care, counseling/discussion: -63 year old female with PMH advanced COPD - dependent on 3L 02, HLD, hypokalemia, current every day smoker, presented to the hospital yesterday with respiratory failure. Workup reveals COPD exacerbation, no evidence of infectious process per record. She was initially admitted to the ICU for COPD exacerbation and CO2 narcosis, but in speaking with patient's children, she would NOT want to be put on breathing machine or bipap for ventilatory support. In fact, patient really did not want to come to the hospital at all. Decision was made to stop aggressive/invasive measures and allow nature to take its course. She was transferred to med/surg. Today, patient is much improved-- awake, alert and oriented x4. She continues to state that she does not want to return to the hospital and wants to be home/comfortable. Palliative care is consulted to discuss goals of care and possible hospice care. -met with patient and her family in room 414 today. Her two daughters Ciara and Cris, and three grandchildren, were at bedside. Patient awake, alert and oriented x4. She gave me permission to discuss her condition and GOC in front of family. -Patient states that if she has another COPD exacerbation such as this one, or any other episode, she would NOT want to come to the hospital for treatment. She stated, "Just let me ." -Patient does have signs of end-stage COPD. Dependent on 3L home oxygen, still SOB even at rest. CO2 87 upon arrival to hospital. Her activity level is severely limited due to the SOB. PPS is 40%. -Patient has not been eating. Albumin is 2.5. She states she just is not hungry. -For the above reasons, I do think patient's prognosis could be six months or less. In discussing goals of care with patient and family, she wants to go home with hospice. Will have case management make referral to hospice. -Will order Roxanol 5mg PO/SL Q3h PRN pain or SOB. Discontinue IV morphine. -Palliative care will follow as needed. (2) COPD exacerbation: (3) CO2 narcosis: Supervising Physician Co-Signing Physician Notes Chart reviewed , pt seen and examined, multiple family at bedside. CM also present Collaborated with CORBY Valdez PE: Pt awake, alert, NAD HEENT: EOMI, hearing WNL Resp: unlabored at rest on O2 at 4 L NC, diminished BS CV: tachycardic Abd: not distended Neuro: alert and oriented Agree with above note, assessment and plan as per CORBY Valdez - plan is to be d/c home with hospice care History of Present Illness Attending Physician: Dean Miller MD History of Present Illness This 63 year old female with PMH advanced COPD - dependent on 3L 02, HLD, hypokalemia, current every day smoker, presented to the hospital yesterday with respiratory failure. Workup reveals COPD exacerbation, no evidence of infectious process per record. She was initially admitted to the ICU for COPD exacerbation and CO2 narcosis, but in speaking with patient's children, she would NOT want to be put on breathing machine or bipap for ventilatory support. In fact, patient really did not want to come to the hospital at all. Decision was made to stop aggressive/invasive measures and allow nature to take its course. She was transferred to med/surg. Today, patient is much improved-- awake, alert and oriented x4. She continues to state that she does not want to return to the hospital and wants to be home/comfortable. Palliative care is consulted to discuss goals of care and possible hospice care. Thank you kindly for this consult. We will follow as needed. Allergies Allergy/AdvReac Type Severity Reaction Status Date / Time No Known Allergies Allergy Unverified 03/07/19 12:24 Home Medications Home Medications Medication Instructions Recorded Confirmed Type albuterol sulfate [Ventolin HFA] 2 - 4 puff INHALATION Q6H PRN 01/28/19 03/07/19 History alendronate 70 mg PO WK 01/28/19 03/07/19 History aspirin 81 mg PO QAM 01/28/19 03/07/19 History fluticasone propion-salmeterol 1 puff INHALATION BID 01/28/19 03/07/19 History [Advair Diskus] ipratropium-albuterol 1 vial INHALATION Q4H 01/28/19 03/07/19 History potassium chloride 7.5 ml PO QAM 01/28/19 03/07/19 History simvastatin 10 mg PO HS 01/28/19 03/07/19 History amitriptyline 10 mg PO DAILY 30 Days #30 tab 02/01/19 03/07/19 Rx cholecalciferol (vitamin D3) 1,000 unit PO DAILY 03/07/19 03/07/19 History [Vitamin D3] Patient History Medical History Asthma COPD (chronic obstructive pulmonary disease) Surgical History History of hernia repair History of tubal ligation Family History Other Family history non-contributory Social History Communication Ability: Effective Beliefs That Will Affect Care: None marital status: Single Current Living Situation: Family Current Living Situation Comment: lives with daughter Other Information That Helps Us Care for You: No Feels Safe at Home: Yes Safety Concerns: Feels Safe At This Time Smoking Status: Current every day smoker Hx Alcohol Use: No Hx Substance Use: No Review of Systems Constitutional: + weakness and + anorexia Ear, Nose, Mouth, Throat: no dysphagia Respiratory: + cough, + dyspnea and + dyspnea on exertion; no sputum production Cardiovascular: no chest pain and no edema Gastrointestinal: no abdominal pain, no nausea and no vomiting Neurologic: no confusion Psychiatric: no depression and no anxiety Physical Exam Vital Signs (Past 24 Hours): Last Vital Signs Temp 36.6 C 03/07/19 15:43 Pulse 83 03/07/19 18:51 Resp 18 03/07/19 18:51 BP 85/49 L 03/07/19 18:15 Pulse Ox 99 03/07/19 18:51 Time Spent Midlevel 70 minutes with >50% of time spent at bedside with patient and family discussing condition and GOC.
--- NOTE | 2019-03-08 13:26 | Hospitalist Progress Note ---
Date of Service March 08, 2019 Assessment & Plan (1) COPD exacerbation: Pt was on BiPAP, but there was concern she was becoming obtunded and entering hypoxemic respiratory failure. She was made comfort care because she is DNI. However, on 03/08, she woke up and was feeling better. - Continue DuoNebs standing, steroids - Hold abx given low concern for bacterial infection (Procal negative on 03/07) - Palliative care consult (2) Elevated troponin: Troponin was 0.2, then 0.15 on 03/07. EKG showed sinus tachycardia without ischemic changes. Likely demand ischemia in the setting of COPD exacerbation. - Continue ASA, statin - Consider beta-brandy if patient stops being comfort care (3) Hypercholesteremia: - Continue statin as above (4) Headache: No current headache. - Continue amitriptyline prophylaxis (5) DVT prophylaxis: SCDs Subjective Patient woke up at 7am and requested food. Presently in no distress. Reports no fevers/chills, chest pain, shortness of breath, abdominal pain, nausea, or vomiting. Physical Exam Vital Signs (Past 24 Hours): Last Vital Signs Temp 36.6 C 03/07/19 15:43 Pulse 83 03/07/19 18:51 Resp 18 03/07/19 18:51 BP 85/49 L 03/07/19 18:15 Pulse Ox 99 03/07/19 18:51 Constitutional: WD/WN, vitals as above Eyes: EOM intact bilaterally; no conjunctival abnormality ENMT: external ear and nose normal, oropharynx normal Neck: trachea midline, no thyromegaly normal visual inspection Respiratory: + labored breathing Auscultation: + wheezes Cardiovascular: RRR, no murmur, no edema Gastrointestinal (Abdomen): Inspection/Auscultation: abdomen normal to inspection; abdomen not distended Musculoskeletal: no cyanosis or clubbing, extremities motor strength 5/5 Skin: no rashes, warm and dry Neurologic: moves all extremities and awake Psychiatric: Orientation: alert, oriented to person and cooperative
[2019-03-08] MEDS ORDERED: MoRPHine SULFATE 5 MG/0.25 ML UDP PO PRN (14:28)
[2019-03-08] MEDS: predniSONE 50 MG TAB PO SCH (14:37)
[2019-03-08] MEDS: ALBUT/IPRATROP 3MG/0.5MG NEB 3 ML VIAL NEB SCH ×3 (15:14→23:16)
[2019-03-08] MEDS ORDERED: ACETAMINOPHEN 325 MG TAB PO PRN (20:02)
[2019-03-08] MEDS: FLUTICASONE/SALMETEROL 250/50 (ADVAIR) 14 PUFF/1 INHALER INH SCH (20:09)
[2019-03-09] MEDS: ALBUT/IPRATROP 3MG/0.5MG NEB 3 ML VIAL NEB SCH ×4 (03:48→15:06)
[2019-03-09] MEDS ORDERED: ASPIRIN 81 MG ECTAB PO SCH (09:00)
[2019-03-09] MEDS ORDERED: AMITRIPTYLINE HCL 10 MG TAB PO SCH (09:00)
[2019-03-09] MEDS: FLUTICASONE/SALMETEROL 250/50 (ADVAIR) 14 PUFF/1 INHALER INH SCH (09:00)
[2019-03-09] MEDS: CHECK SCOPOLAMINE PATCH PLACEMENT SCH ×2 (09:00)
[2019-03-09] MEDS: predniSONE 50 MG TAB PO SCH (09:01)
[2019-03-09] MEDS ORDERED: VANCOMYCIN TROUGH ONE (13:30)
--- NOTE | 2019-03-09 18:33 | Discharge Summary ---
Date of Service March 09, 2019 Admission HPI Per Admitting Provider 63 y/o F Hx advanced COPD - dependent on 3L 02, HLD, hypokalemia - continues to smoke cigarettes. Admitted one month prior for COPD exacerbation. The pt presents with progressive SOB and a cough x 3 days. She has also been somnolent and lethargic per her housemate. Her housemate had been urging her to go to the ER or an urgent care center, however, the pt refused to do so until today when she developed respiratory distress. On arrival to her home, EMS reported that her 02 saturation was 65%. She was placed on BiPAP and transported to the ER. She was febrile on arrival although she could not confirm prior fevers. An initial ABG obtained while she was on BiPAP displayed significant C02 retention with mild hypoxia. Initial labs are notable for an elevated troponin and protein malnutrition. A CTA was obtained and failed to demonstrate evidence of PNM. The pt is a poor historian and was repeatedly falling asleep when I tried to question her. Her housemate provided the preceding information. PMH: 1) Advanced COPD - 3L 02, malnourished 2) HLD 3) Hypokalemia 4) Smoker 5) Protein malnutrition Surgical: Denies Family: Not known, however, mother had COPD - did not now biological father Social: 40+ year history - recently smoking 2-3 cigarettes daily. Does not drink alcohol. Principal Diagnosis COPD exacerbation Discharge Exam Constitutional WD/WN, vitals as above Eyes EOM intact bilaterally; no conjunctival abnormality ENMT external ear and nose normal, oropharynx normal Neck trachea midline, no thyromegaly normal visual inspection Respiratory + labored breathing Auscultation: + wheezes Cardiovascular RRR, no murmur, no edema Gastrointestinal (Abdomen) Inspection/Auscultation: abdomen normal to inspection; abdomen not distended Musculoskeletal no cyanosis or clubbing, extremities motor strength 5/5 Skin no rashes, warm and dry Neurologic moves all extremities and awake Psychiatric Orientation: alert, oriented to person and cooperative Discharge Data Allergies Allergy/AdvReac Type Severity Reaction Status Date / Time No Known Allergies Allergy Unverified 03/07/19 12:24 Consultations 03/07/19 12:22 ED Decision to Admit Stat 03/07/19 16:03 Consult Case Management - Discharge Planning Routine Consult [employer] Routine 03/08/19 11:30 Consult Palliative Care Routine Ordered Studies 03/07/19 11:51 CT head/brain wo con Stat 03/07/19 12:22 CT angio chest PE protocol Stat Hospital Course (1) COPD exacerbation: Pt was on BiPAP, but there was concern she was becoming obtunded and entering hypoxemic respiratory failure. She was made comfort care because she is DNI. However, on 03/08, she woke up and was feeling better. - Continued DuoNebs standing, steroids - Held abx given low concern for bacterial infection (Procal negative on 03/07) - Home with hospice (2) Elevated troponin: Troponin was 0.2, then 0.15 on 03/07. EKG showed sinus tachycardia without ischemic changes. Likely demand ischemia in the setting of COPD exacerbation. - Stopped ASA & atorvastatin given her comfort care status (3) Hypercholesteremia: - Stop statin as above (4) Headache: No current headache. - Continued amitriptyline prophylaxis (5) DVT prophylaxis: SCDs Total Time Total Time Spent Total Time Spent (In Minutes): 45 Total Time Includes: Examination of the Patient, Discharge Planning, Medication Reconciliation and Communication With Other Providers Discharge Plan Discharge Items Patient Disposition: Hospice - Home Reason For Visit: COPD EXACERBATION - END STAGE COPD Discharge Diagnosis: COPD exacerbation Discharge Goals: Decrease discomfort and Increase independence Activity: Resume your previous activity Non-emergency contact: Primary Care Provider Call non-emergency contact if: your symptoms worsen, your pain is not controlled and your temperature is above 100.5 Follow-up/Referrals: Alesha Means PA-C [Primary Care Provider] - Diet: Regular Addtl Provider Instructions: Ms. Faria, You were admitted to the hospital with trouble breathing from your COPD. We treated you with breathing treatments & steroids. We arranged to have hospice help you at home so that you do not have to come back to the hospital. Please follow up with the hospice team to help you stay comfortable and remain at home. We gave you a few more days of steroids to try to make your breathing as good as possible. We trimmed (stopped) some of your medications that are not helping with your comfort level. Please follow up with your PCP or hospice doctors to be sure you have everything you need to feel well at home. Please call the hospice doctors if you have any shortness of breath, chest pain, nausea, vomiting, or other concerns. Prescriptions: New morphine concentrate 100 mg/5 mL (20 mg/mL) Solution 5 mg PO Q3H PRN (Reason: dyspnea) Qty: 15 RF: 0 prednisone 50 mg Tablet 50 mg PO DAILY Qty: 5 RF: 0 scopolamine base [Transderm-Scop] 1 mg over 3 days Patch 3 Day 1.5 mg transdermal Q72H PRN (Reason: nausea and vomiting) Qty: 4 RF: 0 Continued fluticasone propion-salmeterol [Advair Diskus] 250-50 mcg/dose blister with device 1 puff Inhalation BID RF: 0 albuterol sulfate [Ventolin HFA] 90 mcg/actuation HFA aerosol inhaler 2 - 4 puff Inhalation Q6H PRN (Reason: Shortness Of Breath Or Wheezing) RF: 0 amitriptyline 10 mg Tablet 10 mg PO DAILY 30 Days Qty: 30 RF: 1 ipratropium-albuterol 0.5 mg-3 mg(2.5 mg base)/3 mL solution for nebulization 1 vial Inhalation Q4H Qty: 30 RF: 0 Discontinued alendronate 70 mg tablet 70 mg PO WK RF: 0 simvastatin 10 mg tablet 10 mg PO HS RF: 0 aspirin 81 mg Tablet,Delayed Release (Dr/Ec) 81 mg PO QAM RF: 0 potassium chloride 20 mEq/15 mL liquid 7.5 ml PO QAM RF: 0 cholecalciferol (vitamin D3) [Vitamin D3] 1,000 unit tablet 1,000 unit PO DAILY RF: 0 Stand-Alone Forms: [facility] Discharge Orders: Discharge Order (Routine); Ordered 03/09/19 Ordered By: Dean Miller Admission Data Admit Date/Time: 03/07/19 14:18 Attending Provider: Dean Miller Admit Provider: Carlos Ramirez Primary Care Provider: Alesha Means Other Providers: Ronaldo Aguilar ; Dean Miller ; Magdalene Michaels Service: Medical Other Interventions: Discharge Summary Assessment (RN) Last Done: 03/09/19 14:43 DC Date/Time DO NOT enter until pt leaves facility: 03/09/19 16:42
--- NOTE | 2019-03-09 18:34 | Emergency Department Note ---
Entered by Jelly Vidal acting as a scribe for History of Present Illness General Chief complaint: Shortness of Breath/Dyspnea Stated complaint: ams Time Seen by Provider: 03/07/19 10:28 Source: EMS History of Present Illness Onset (ago): hour(s) (this morning) Location: chest Pain Consistency: + other (episode) Quality: + other (shortness of breath) The patient is a 63 year old female who presents to the Emergency Room with complaints of an episode of shortness of breath. The patient is not overly responsive and can answer few questions. The EMS stated that the patient was found on a CPAP machine with an O2 level of 65%. The EMS noted that they gave the patient an albuterol treatment and her O2 levels improved into the 90% range. The HPI and ROS are limited due to the patient's non-responsive status. Home Medications Home Medications Medication Instructions Recorded Confirmed Type albuterol sulfate [Ventolin HFA] 2 - 4 puff INHALATION Q6H PRN 01/28/19 03/07/19 History fluticasone propion-salmeterol 1 puff INHALATION BID 01/28/19 03/07/19 History [Advair Diskus] amitriptyline 10 mg PO DAILY 30 Days #30 tab 02/01/19 03/07/19 Rx ipratropium-albuterol 1 vial INHALATION Q4H #30 ml 03/09/19 Rx morphine concentrate 5 mg PO Q3H PRN #15 ml 03/09/19 Rx prednisone 50 mg PO DAILY #5 tab 03/09/19 Rx scopolamine base [Transderm-Scop] 1.5 mg TRANSDERMAL Q72H PRN #4 ea 03/09/19 Rx Allergies Allergy/AdvReac Type Severity Reaction Status Date / Time No Known Allergies Allergy Unverified 03/07/19 12:24 Past Med/Surg History Medical History Asthma COPD (chronic obstructive pulmonary disease) Surgical History History of hernia repair History of tubal ligation Family History Other Family history non-contributory Social History Preferred Language: [place] Beliefs That Will Affect Care: None marital status: Single Current Living Situation: Family Current Living Situation Comment: lives with daughter Other Information That Helps Us Care for You: No Feels Safe at Home: Yes Safety Concerns: Feels Safe At This Time Smoking Status: Current every day smoker Hx Alcohol Use: No Hx Substance Use: No Review of Systems The HPI and ROS are limited due to the patient's non-responsive status. Physical Exam Vital Signs Vital Signs - 24 hr 03/08/19 19:18 03/08/19 19:32 03/08/19 23:18 Temperature Temperature Source Pulse Rate [Right Finger] 98 H 83 Respiratory Rate 20 18 Respiratory Effort / Characteristics Short of Breath SOB on Exertion Non-Labored Spontaneous Non-Labored Spontaneous Respiratory Depth Normal Respiratory Pattern Regular Blood Pressure [Left Arm] Blood Pressure Mean [Left Arm] Pulse Oximetry 91 92 Oxygen Delivery Method Nasal Cannula Nasal Cannula Nasal Cannula Oxygen Flow Rate 3 3 2 03/09/19 00:57 03/09/19 03:49 03/09/19 06:58 Temperature 36.6 C Temperature Source Oral Pulse Rate [Right Finger] 77 98 H Respiratory Rate 14 22 Respiratory Effort / Characteristics Non-Labored Spontaneous Non-Labored Spontaneous Respiratory Depth Normal Respiratory Pattern Regular Blood Pressure [Left Arm] 85/43 L Blood Pressure Mean [Left Arm] 57 Pulse Oximetry 97 90 Oxygen Delivery Method Nasal Cannula Nasal Cannula Nasal Cannula Oxygen Flow Rate 3 3 3 03/09/19 07:19 03/09/19 08:00 03/09/19 11:06 Temperature Temperature Source Pulse Rate [Right Finger] 86 95 H Respiratory Rate 20 18 Respiratory Effort / Characteristics Spontaneous Short of Breath Spontaneous Labored Short of Breath SOB on Exertion Tripoding Non-Labored Spontaneous Respiratory Depth Deep Respiratory Pattern Rapid/Deep Blood Pressure [Left Arm] Blood Pressure Mean [Left Arm] Pulse Oximetry 96 91 Oxygen Delivery Method Nasal Cannula Nasal Cannula Nasal Cannula Oxygen Flow Rate 3 4 4 03/09/19 14:43 03/09/19 15:06 Temperature 36.6 C Temperature Source Pulse Rate [Right Finger] 95 H 73 Respiratory Rate 18 20 Respiratory Effort / Characteristics Non-Labored Spontaneous Respiratory Depth Respiratory Pattern Blood Pressure [Left Arm] 85/43 L Blood Pressure Mean [Left Arm] Pulse Oximetry 91 91 Oxygen Delivery Method Nasal Cannula Oxygen Flow Rate 3 GENERAL: Patient appears confused. HEAD: Normocephalic atraumatic EYES: Ocular movements intact pupils equal and react to light OROPHARYNX mucous membranes are moist no exudates present no erythema or edema present NECK: Supple no nuchal rigidity CHEST: Good equal expansion LUNGS: Bilateral wheezing noted CARDIAC: Normal S1 and S2 ABDOMEN: Soft nontender no guarding BACK: No CVA tenderness EXTREMITIES: No pain upon palpation normal muscle strength in all groups no clubbing cyanosis or edema NEURO: Patient is only able to answer a few questions. Alert and oriented x3 Cranial Nerves 2-12 grossly intact Course 1029: The patient was evaluated in room B04B, and a complete history and physical examination were performed. 1110: I reevaluated the patient. There are no significant changes in her symptoms. 1316: I discussed the patient's case with Dr. Chavez, [facility] [place] [facility] Hospitalist, who will evaluate the patient for further management and care. 1320: Upon reevaluation, the patient appeared to have no significant improvement of her symptoms. I discussed tonight's findings with the patient. She verbalized agreement of the treatment plan. She will be evaluated for further management and care. Consultations Consultation #1: I discussed the patient's case with Dr. Chavez, [facility] [place] Hospitalist, who will evaluate the patient for further management and care. Time: 13:16 Administered Medications Discontinued Medications Acetaminophen (Tylenol) 1,000 mg PO NOW STA Stop: 03/07/19 11:37 Last Admin: 03/07/19 12:57 Dose: Not Given Documented by: [id number] Acetaminophen (Tylenol) 650 mg PO Q4H PRN PRN Reason: Pain Stop: 04/07/19 20:01 Last Admin: 03/08/19 20:08 Dose: 650 mg Documented by: [id number] Albuterol (Duoneb) 12 ml NEB ONE ONE Stop: 03/07/19 10:32 Last Admin: 03/07/19 10:43 Dose: 12 ml Documented by: [id number] Albuterol (Duoneb) 12 ml NEB ONE ONE Stop: 03/07/19 10:34 Last Admin: 03/07/19 11:11 Dose: Not Given Documented by: [id number] Albuterol (Duoneb) 3 ml NEB QIDR [facility] Stop: 04/06/19 16:14 Last Admin: 03/07/19 18:49 Dose: 3 ml Documented by: [id number] Admin: 03/07/19 16:48 Dose: 3 ml Documented by: [id number] Albuterol (Duoneb) 3 ml NEB Q4R [place] Stop: 04/07/19 15:59 Last Admin: 03/09/19 15:06 Dose: 3 ml Documented by: [id number] Admin: 03/09/19 11:03 Dose: 3 ml Documented by: [id number] Admin: 03/09/19 07:16 Dose: 3 ml Documented by: [id number] Admin: 03/09/19 03:48 Dose: 3 ml Documented by: [id number] Admin: 03/08/19 23:16 Dose: 3 ml Documented by: [id number] Admin: 03/08/19 19:32 Dose: 3 ml Documented by: [id number] Admin: 03/08/19 15:14 Dose: 3 ml Documented by: [id number] Amitriptyline HCl (Elavil) 10 mg PO DAILY [place] Stop: 04/08/19 08:59 Last Admin: 03/09/19 09:01 Dose: 10 mg Documented by: [id number] Aspirin (Ecotrin Ectab) 81 mg PO QAM [facility] Stop: 04/08/19 08:59 Last Admin: 03/09/19 09:01 Dose: 81 mg Documented by: [id number] Enoxaparin Sodium (Lovenox) 50 mg SQ Q12@0600,1800 [facility] Stop: 04/06/19 17:59 Last Admin: 03/07/19 17:15 Dose: 50 mg Documented by: [id number] Furosemide (Lasix) 40 mg IV NOW STA Stop: 03/07/19 11:04 Last Admin: 03/07/19 11:30 Dose: 40 mg Documented by: [id number] Magnesium Sulfate/Dextrose (Magnesium Sulfate / D5w) 1 gm in 100 mls @ 100 mls/hr IV ONE ONE Stop: 03/07/19 11:31 Last Infusion: 03/07/19 12:58 Dose: 0 mls/hr Documented by: [id number] Admin: 03/07/19 11:31 Dose: 100 mls/hr Documented by: [id number] Sodium Chloride (Nss 1000ml) 1,000 mls @ 999 mls/hr IV .Q1H1M [facility] Stop: 03/07/19 11:45 Last Admin: 03/07/19 11:24 Dose: Not Given Documented by: [id number] Piperacillin Sod/Tazobactam Sod (Zosyn) 4.5 gm in 120 mls @ 240 mls/hr IV NOW ONE Stop: 03/07/19 12:05 Last Infusion: 03/07/19 12:58 Dose: 0 mls/hr Documented by: [id number] Admin: 03/07/19 12:15 Dose: 240 mls/hr Documented by: [id number] Levofloxacin/Dextrose (Levaquin/D5w) 750 mg in 150 mls @ 100 mls/hr IV NOW STA Stop: 03/07/19 13:05 Last Infusion: 03/07/19 15:18 Dose: 0 mls/hr Documented by: [id number] Admin: 03/07/19 12:57 Dose: 100 mls/hr Documented by: [id number] Acetaminophen (Ofirmev) 1,000 mg in 100 mls @ 400 mls/hr IV NOW STA Stop: 03/07/19 11:50 Last Infusion: 03/07/19 12:58 Dose: 0 mls/hr Documented by: [id number] Admin: 03/07/19 12:15 Dose: 400 mls/hr Documented by: [id number] Vancomycin HCl 1,000 mg/ (Sodium Chloride) 520 mls @ 200 mls/hr IV NOW ONE Stop: 03/07/19 14:11 Last Infusion: 03/07/19 15:36 Dose: 0 mls/hr Documented by: [id number] Admin: 03/07/19 12:59 Dose: 200 mls/hr Documented by: [id number] Potassium Chloride/Dextrose/Sod Cl (D5nss + 20meq Kcl) 20 meq in 1,000 mls @ 100 mls/hr IV .Q10H [place] Stop: 03/08/19 12:29 Last Infusion: 03/07/19 19:58 Dose: 0 mls/hr Documented by: [id number] Admin: 03/07/19 18:06 Dose: 100 mls/hr Documented by: [id number] Doxycycline Hyclate 100 mg/ (Dextrose) 110 mls @ 50 mls/hr IV Q12H [place] Stop: 03/14/19 17:59 Last Infusion: 03/07/19 19:59 Dose: 0 mls/hr Documented by: [id number] Admin: 03/07/19 17:16 Dose: 50 mls/hr Documented by: [id number] Methylprednisolone 40 mg/ (Syringe) 0.64 mls @ 1.5 mls/min IV Q6H [facility] Stop: 04/06/19 17:59 Last Admin: 03/07/19 17:14 Dose: 1.5 mls/min Documented by: [id number] Piperacillin Sod/Tazobactam (Sod 3.375 gm/ Dextrose) 115 mls @ 28.75 mls/hr IV Q8H [facility]; Protocol Stop: 03/17/19 17:59 Last Infusion: 03/07/19 20:00 Dose: 0 mls/hr Documented by: [id number] Admin: 03/07/19 18:06 Dose: 28.8 mls/hr Documented by: [id number] Sodium Chloride (Nss 1000ml) 1,000 mls @ 999 mls/hr IV .Q1H1M [facility] Stop: 03/07/19 18:15 Last Infusion: 03/07/19 18:53 Dose: 0 mls/hr Documented by: [id number] Admin: 03/07/19 17:16 Dose: 999 mls/hr Documented by: [id number] Ioversol (Optiray 320 100ml) 83 ml IV ONCE PRN PRN Reason: Interaction Checking Stop: 03/11/19 12:38 Last Admin: 03/07/19 12:40 Dose: 83 ml Documented by: [id number] Miscellaneous (Check Scopolamine Patch Placement) 1 ea N/A QS [facility] Stop: 04/07/19 00:00 Last Admin: 03/09/19 09:00 Dose: 1 ea Documented by: [id number] Admin: 03/09/19 00:00 Dose: 1 ea Documented by: [id number] Admin: 03/08/19 14:40 Dose: 1 ea Documented by: [id number] Admin: 03/08/19 08:08 Dose: 1 ea Documented by: [id number] Admin: 03/07/19 23:34 Dose: 1 ea Documented by: [id number] Prednisone (Prednisone) 50 mg PO DAILY [facility] Stop: 04/07/19 13:29 Last Admin: 03/09/19 09:01 Dose: 50 mg Documented by: [id number] Admin: 03/08/19 14:37 Dose: 50 mg Documented by: [id number] Fluticasone/Salmeterol (Advair Diskus 250/50) 1 puffs INH BID [place] Stop: 04/07/19 20:59 Last Admin: 03/09/19 09:00 Dose: 1 puffs Documented by: [id number] Admin: 03/08/19 20:09 Dose: 1 puffs Documented by: [id number] Scopolamine (Transderm-Scop) 1.5 mg TD Q72H [place] Stop: 04/06/19 18:59 Last Admin: 03/07/19 21:35 Dose: 1.5 mg Documented by: [id number] Medical Decision Making Differential Diagnosis Differential diagnosis: Etiologies such as infections, reactive airway disease, pneumonia, pneumothorax, COPD, CHF, cardiac ischemia, pulmonary embolism, musculoskeletal, gastrointesti nal, as well as others were entertained. Medical Records Attestation: I reviewed the patient's medical records. Home Medications Current Medication List: was personally reviewed by me Laboratory Data Attestation: I reviewed the patient's lab results. Result diagrams: 03/07/19 11:22 03/07/19 11:22 Lab Results 03/07/19 03/07/19 03/07/19 Range/Units 11:22 11:22 11:22 WBC 16.99 H (4.8-10.8) K/uL RBC 3.62 L (4.2-5.4) M/uL Hgb 11.0 L (12.0-16.0) g/dL Hct 35.2 L (37-47) % MCV 97.2 (80-100) fL MCH 30.4 (25-34) pg MCHC 31.3 L (32-36) g/dL RDW Std Deviation 50.6 H (36.4-46.3) fL RDW Coeff of Maria D 14.2 (11.5-14.5) % Plt Count 358 (130-400) K/uL MPV 9.6 (7.4-10.4) fL Immature Gran % (Auto) 0.2 % Neut % (Auto) 86.8 % Lymph % (Auto) 5.4 % [place] % (Auto) 7.4 % Eos % (Auto) 0.0 % Baso % (Auto) 0.2 % Immature Gran # (Auto) 0.04 H (0.00-0.02) K/uL Neut # (Auto) 14.74 H (1.4-6.5) K/uL Lymph # (Auto) 0.92 L (1.2-3.4) K/uL [place] # (Auto) 1.26 H (0.11-0.59) K/uL Eos # (Auto) 0.00 (0-0.5) K/uL Baso # (Auto) 0.03 (0-0.2) K/uL Sample Site ABG pH 7.23 L (7.35-7.45) ABG pCO2 87 H (35-46) mmHg ABG pO2 113 H (80-95) mm/Hg ABG HCO3 36 H (19-24) mmol/L ABG O2 Saturation 97.0 H (90-95) % ABG Base Excess 6.0 H (-9-1.8) mEq/L [place] Test Pos (Pos) POC VBG pH (7.36-7.41) POC VBG pCO2 (38-50) mmHg POC VBG pO2 (30-55) mmHg POC VBG HCO3 (23-28) meq/L POC VBG Total CO2 (24-31) mEq/l POC Venous O2 Sat (70-80) % POC VBG Base Excess meq/L Barometric Pressure 726.0 mm/Hg Oxygen Given 40% O2 Delivery Device POC O2 Rate POC FiO2 % IPAP Sodium 140 (136-145) mmol/L Potassium 4.1 (3.5-5.1) mmol/L Chloride 103 (98-107) mmol/L Carbon Dioxide 37 H (21-32) mmol/L Anion Gap 0 L (3-11) BUN 19 H (7-18) mg/dl Creatinine 0.52 L (0.6-1.2) mg/dl Est Cr Clr Drug Dosing 79.2 ml/min Est GFR ( Amer) 116.2 Est GFR (Non-Af Amer) 100.3 BUN/Creatinine Ratio 35.7 H (10-20) Glucose 106 H (70-99) mg/dl POC Glucose (70-99) Calcium 7.4 L (8.5-10.1) mg/dl Total Bilirubin 0.4 (0.2-1) mg/dl AST 16 (15-37) U/L ALT 17 (12-78) U/L Alkaline Phosphatase 126 H (45-117) U/L Total Creatine Kinase 140 (26-192) U/L CK-MB (CK-2) 1.8 (0.5-3.6) ng/ml CK/CKMB % Calc 1.3 (0-3.0) Troponin I 0.203 H* (0-0.045) ng/ml NT-Pro-B Natriuret Pep 821 (0-900) pg/ml Total Protein 6.5 (6.4-8.2) gm/dl Albumin 2.5 L (3.4-5.0) gm/dl Globulin 4.0 (2.5-4.0) gm/dl Albumin/Globulin Ratio 0.6 L (0.9-2) Lipase 36 L (73-393) U/L Procalcitonin (0-0.5) ng/ml Urine Color Urine Appearance (Clear) Urine pH (4.5-7.5) Ur Specific [place] (1.000-1.030) Urine Protein (Negative) Urine Glucose (UA) (Negative) Urine Ketones (Negative) Urine Blood (Negative) Urine Nitrite (Negative) Urine Bilirubin (Negative) Urine Urobilinogen (Negative) Ur Leukocyte Esterase (Negative) Urine WBC (Auto) (0-5) /hpf Urine RBC (Auto) (0-4) /hpf U Hyaline Cast (Auto) (0-5) /lpf U Epithel Cells (Auto) (0-5) /lpf Urine Bacteria (Auto) (Negative) Nasal Screen MRSA (PCR) (Negative) Influenza Type A (PCR) (Neg) Influenza Type B (PCR) (Neg) 03/07/19 03/07/19 03/07/19 Range/Units 11:22 11:30 15:50 WBC (4.8-10.8) K/uL RBC (4.2-5.4) M/uL Hgb (12.0-16.0) g/dL Hct (37-47) % MCV (80-100) fL MCH (25-34) pg MCHC (32-36) g/dL RDW Std Deviation (36.4-46.3) fL RDW Coeff of Maria D (11.5-14.5) % Plt Count (130-400) K/uL MPV (7.4-10.4) fL Immature Gran % (Auto) % Neut % (Auto) % Lymph % (Auto) % [place] % (Auto) % Eos % (Auto) % Baso % (Auto) % Immature Gran # (Auto) (0.00-0.02) K/uL Neut # (Auto) (1.4-6.5) K/uL Lymph # (Auto) (1.2-3.4) K/uL [place] # (Auto) (0.11-0.59) K/uL Eos # (Auto) (0-0.5) K/uL Baso # (Auto) (0-0.2) K/uL Sample Site ABG pH (7.35-7.45) ABG pCO2 (35-46) mmHg ABG pO2 (80-95) mm/Hg ABG HCO3 (19-24) mmol/L ABG O2 Saturation (90-95) % ABG Base Excess (-9-1.8) mEq/L [place] Test (Pos) POC VBG pH (7.36-7.41) POC VBG pCO2 (38-50) mmHg POC VBG pO2 (30-55) mmHg POC VBG HCO3 (23-28) meq/L POC VBG Total CO2 (24-31) mEq/l POC Venous O2 Sat (70-80) % POC VBG Base Excess meq/L Barometric Pressure mm/Hg Oxygen Given O2 Delivery Device POC O2 Rate POC FiO2 % IPAP Sodium (136-145) mmol/L Potassium (3.5-5.1) mmol/L Chloride (98-107) mmol/L Carbon Dioxide (21-32) mmol/L Anion Gap (3-11) BUN (7-18) mg/dl Creatinine (0.6-1.2) mg/dl Est Cr Clr Drug Dosing ml/min Est GFR ( Amer) Est GFR (Non-Af Amer) BUN/Creatinine Ratio (10-20) Glucose (70-99) mg/dl POC Glucose (70-99) Calcium (8.5-10.1) mg/dl Total Bilirubin (0.2-1) mg/dl AST (15-37) U/L ALT (12-78) U/L Alkaline Phosphatase (45-117) U/L Total Creatine Kinase (26-192) U/L CK-MB (CK-2) (0.5-3.6) ng/ml CK/CKMB % Calc (0-3.0) Troponin I (0-0.045) ng/ml NT-Pro-B Natriuret Pep Cancelled (0-900) pg/ml Total Protein (6.4-8.2) gm/dl Albumin (3.4-5.0) gm/dl Globulin (2.5-4.0) gm/dl Albumin/Globulin Ratio (0.9-2) Lipase (73-393) U/L Procalcitonin (0-0.5) ng/ml Urine Color Urine Appearance (Clear) Urine pH (4.5-7.5) Ur Specific [place] (1.000-1.030) Urine Protein (Negative) Urine Glucose (UA) (Negative) Urine Ketones (Negative) Urine Blood (Negative) Urine Nitrite (Negative) Urine Bilirubin (Negative) Urine Urobilinogen (Negative) Ur Leukocyte Esterase (Negative) Urine WBC (Auto) (0-5) /hpf Urine RBC (Auto) (0-4) /hpf U Hyaline Cast (Auto) (0-5) /lpf U Epithel Cells (Auto) (0-5) /lpf Urine Bacteria (Auto) (Negative) Nasal Screen MRSA (PCR) Negative (Negative) Influenza Type A (PCR) Neg for Influ A (Neg) Influenza Type B (PCR) Neg for Influ B (Neg) 03/07/19 03/07/19 03/07/19 Range/Units 16:22 16:24 16:24 WBC (4.8-10.8) K/uL RBC (4.2-5.4) M/uL Hgb (12.0-16.0) g/dL Hct (37-47) % MCV (80-100) fL MCH (25-34) pg MCHC (32-36) g/dL RDW Std Deviation (36.4-46.3) fL RDW Coeff of Maria D (11.5-14.5) % Plt Count (130-400) K/uL MPV (7.4-10.4) fL Immature Gran % (Auto) % Neut % (Auto) % Lymph % (Auto) % [place] % (Auto) % Eos % (Auto) % Baso % (Auto) % Immature Gran # (Auto) (0.00-0.02) K/uL Neut # (Auto) (1.4-6.5) K/uL Lymph # (Auto) (1.2-3.4) K/uL [place] # (Auto) (0.11-0.59) K/uL Eos # (Auto) (0-0.5) K/uL Baso # (Auto) (0-0.2) K/uL Sample Site L Radial ABG pH (7.35-7.45) ABG pCO2 (35-46) mmHg ABG pO2 (80-95) mm/Hg ABG HCO3 (19-24) mmol/L ABG O2 Saturation (90-95) % ABG Base Excess (-9-1.8) mEq/L [place] Test Pass (Pos) POC VBG pH 7.27 L (7.36-7.41) POC VBG pCO2 80 H (38-50) mmHg POC VBG pO2 47 (30-55) mmHg POC VBG HCO3 37 H (23-28) meq/L POC VBG Total CO2 39 H (24-31) mEq/l POC Venous O2 Sat 76.0 (70-80) % POC VBG Base Excess 9.0 meq/L Barometric Pressure mm/Hg Oxygen Given O2 Delivery Device BIPAP POC O2 Rate 12 POC FiO2 40 % IPAP 15 Sodium (136-145) mmol/L Potassium (3.5-5.1) mmol/L Chloride (98-107) mmol/L Carbon Dioxide (21-32) mmol/L Anion Gap (3-11) BUN (7-18) mg/dl Creatinine (0.6-1.2) mg/dl Est Cr Clr Drug Dosing ml/min Est GFR ( Amer) Est GFR (Non-Af Amer) BUN/Creatinine Ratio (10-20) Glucose (70-99) mg/dl POC Glucose (70-99) Calcium (8.5-10.1) mg/dl Total Bilirubin (0.2-1) mg/dl AST (15-37) U/L ALT (12-78) U/L Alkaline Phosphatase (45-117) U/L Total Creatine Kinase (26-192) U/L CK-MB (CK-2) (0.5-3.6) ng/ml CK/CKMB % Calc (0-3.0) Troponin I 0.156 H* (0-0.045) ng/ml NT-Pro-B Natriuret Pep (0-900) pg/ml Total Protein (6.4-8.2) gm/dl Albumin (3.4-5.0) gm/dl Globulin (2.5-4.0) gm/dl Albumin/Globulin Ratio (0.9-2) Lipase (73-393) U/L Procalcitonin 0.23 (0-0.5) ng/ml Urine Color Urine Appearance (Clear) Urine pH (4.5-7.5) Ur Specific [place] (1.000-1.030) Urine Protein (Negative) Urine Glucose (UA) (Negative) Urine Ketones (Negative) Urine Blood (Negative) Urine Nitrite (Negative) Urine Bilirubin (Negative) Urine Urobilinogen (Negative) Ur Leukocyte Esterase (Negative) Urine WBC (Auto) (0-5) /hpf Urine RBC (Auto) (0-4) /hpf U Hyaline Cast (Auto) (0-5) /lpf U Epithel Cells (Auto) (0-5) /lpf Urine Bacteria (Auto) (Negative) Nasal Screen MRSA (PCR) (Negative) Influenza Type A (PCR) (Neg) Influenza Type B (PCR) (Neg) 03/07/19 03/07/19 Range/Units 16:33 16:35 WBC (4.8-10.8) K/uL RBC (4.2-5.4) M/uL Hgb (12.0-16.0) g/dL Hct (37-47) % MCV (80-100) fL MCH (25-34) pg MCHC (32-36) g/dL RDW Std Deviation (36.4-46.3) fL RDW Coeff of Maria D (11.5-14.5) % Plt Count (130-400) K/uL MPV (7.4-10.4) fL Immature Gran % (Auto) % Neut % (Auto) % Lymph % (Auto) % [place] % (Auto) % Eos % (Auto) % Baso % (Auto) % Immature Gran # (Auto) (0.00-0.02) K/uL Neut # (Auto) (1.4-6.5) K/uL Lymph # (Auto) (1.2-3.4) K/uL [place] # (Auto) (0.11-0.59) K/uL Eos # (Auto) (0-0.5) K/uL Baso # (Auto) (0-0.2) K/uL Sample Site ABG pH (7.35-7.45) ABG pCO2 (35-46) mmHg ABG pO2 (80-95) mm/Hg ABG HCO3 (19-24) mmol/L ABG O2 Saturation (90-95) % ABG Base Excess (-9-1.8) mEq/L Freedom Test (Pos) POC VBG pH (7.36-7.41) POC VBG pCO2 (38-50) mmHg POC VBG pO2 (30-55) mmHg POC VBG HCO3 (23-28) meq/L POC VBG Total CO2 (24-31) mEq/l POC Venous O2 Sat (70-80) % POC VBG Base Excess meq/L Barometric Pressure mm/Hg Oxygen Given O2 Delivery Device POC O2 Rate POC FiO2 % IPAP Sodium (136-145) mmol/L Potassium (3.5-5.1) mmol/L Chloride (98-107) mmol/L Carbon Dioxide (21-32) mmol/L Anion Gap (3-11) BUN (7-18) mg/dl Creatinine (0.6-1.2) mg/dl Est Cr Clr Drug Dosing ml/min Est GFR ( Amer) Est GFR (Non-Af Amer) BUN/Creatinine Ratio (10-20) Glucose (70-99) mg/dl POC Glucose 101 H (70-99) Calcium (8.5-10.1) mg/dl Total Bilirubin (0.2-1) mg/dl AST (15-37) U/L ALT (12-78) U/L Alkaline Phosphatase (45-117) U/L Total Creatine Kinase (26-192) U/L CK-MB (CK-2) (0.5-3.6) ng/ml CK/CKMB % Calc (0-3.0) Troponin I (0-0.045) ng/ml NT-Pro-B Natriuret Pep (0-900) pg/ml Total Protein (6.4-8.2) gm/dl Albumin (3.4-5.0) gm/dl Globulin (2.5-4.0) gm/dl Albumin/Globulin Ratio (0.9-2) Lipase (73-393) U/L Procalcitonin (0-0.5) ng/ml Urine Color Yellow Urine Appearance Clear (Clear) Urine pH 5.0 (4.5-7.5) Ur Specific [place] 1.032 H (1.000-1.030) Urine Protein Negative (Negative) Urine Glucose (UA) Negative (Negative) Urine Ketones Negative (Negative) Urine Blood 1+ H (Negative) Urine Nitrite Negative (Negative) Urine Bilirubin Negative (Negative) Urine Urobilinogen Negative (Negative) Ur Leukocyte Esterase Negative (Negative) Urine WBC (Auto) 0 (0-5) /hpf Urine RBC (Auto) 5-10 H (0-4) /hpf U Hyaline Cast (Auto) 1-5 (0-5) /lpf U Epithel Cells (Auto) 5-10 H (0-5) /lpf Urine Bacteria (Auto) Negative (Negative) Nasal Screen MRSA (PCR) (Negative) Influenza Type A (PCR) (Neg) Influenza Type B (PCR) (Neg) Imaging Data Radiologist's Impression: Radiology results as stated below per my review and the radiologist's interpretation: XR chest 1V portable CLINICAL HISTORY: Chest Pain dyspnea COMPARISON STUDY: 01/29/2019 FINDINGS: Diffuse Baseline emphysematous change. Increased prominence of pulmonary vasculature. Interstitial change at both lung bases. IMPRESSION: Emphysematous change. Developing congestive failure. The above report was generated using voice recognition software. It may contain grammatical, syntax or spelling errors. Electronically signed by: Eric Esquivel M.D. 03/07/2019 10:[address] head/brain wo con CT DOSE: HISTORY: Mental status change Pt c/O AMS TECHNIQUE: Multiaxial CT images of the head were performed without the use of intravenous contrast. A dose lowering technique was utilized adhering to the principles of ALARA. Comparison: None. Findings: The paranasal sinuses and mastoid air cells are clear. The calvarium and skull base are intact. The ventricles and sulci are within normal limits. There is no mass, hematoma, midline shift, or acute infarct. Impression: No acute intracranial abnormality. The above report was generated using voice recognition software. It may contain grammatical, syntax or spelling errors. Electronically signed by: Eric Esquivel M.D. 03/07/2019 12:[address] angio chest PE protocol CT DOSE: 1284.30 mGy.cm HISTORY: Chest pain. Dyspnea. PE TECHNIQUE: Multiaxial CT images of the chest were performed following the intravenous administration of contrast to evaluate the pulmonary arteries. Maxim al intensity projection images were also obtained. A dose lowering technique was utilized adhering to the principles of ALARA. COMPARISON STUDY: None. FINDINGS: The thoracic aorta is normal in course and caliber. No evidence for aneurysm or dissection. Several mediastinal and hilar nodes measuring up to 1.1 cm. Lung parenchyma demonstrates moderate parenchymal emphysematous change. Scattered bibasilar parenchymal atelectatic changes. No evidence for well- defined focal infiltrative process. IMPRESSION: 1. No evidence of pulmonary embolus. 2. Emphysematous change. 3. Scattered bibasilar minimal atelectatic changes. 4. Several small mediastinal and/or hilar nodes with a 4 to six-month follow-up CT scan recommended The above report was generated using voice recognition software. It may contain grammatical, syntax or spelling errors. Electronically signed by: Eric Esquivel M.D. 03/07/2019 12:46 PM ECG Data Attestation: I personally reviewed and interpreted this ECG as follows: Indication: SOB/dyspnea Rate (beats per minute): 134 Rhythm: sinus tachycardia Findings: no PAC, no PVC, no ST depression, no ST elevation, no acute ischemic change and no ectopy Blood Pressure Blood Pressure Findings: Normal blood pressure MDM Narrative This is a 63-year-old female who presents emergency department in acute distress. The patient was only satting 68% on her home CPAP. She was placed on BiPAP here in the emergency department and she appears to be doing better. A blood gas was obtained at that time. She does have an elevation in her white blood cell count. She was started on steroids and started on Zosyn Levaquin and vancomycin. I did discuss her case with the hospitalist service who agreed to admit the patient. Impression & Plan Hypoxia Critical Care Time I have personally spent greater than 30 minutes of critical care time in the direct management of this patient. This includes bedside care, interpretation of diagnostic studies, and testing, discussion with consultants, patient, and family members, and other required patient management activities. This 30 ashley khari is in excess of all separately billable procedures. Critical Care Time: Yes Total Critical Care Time: 30 Discharge Plan Visit Data *Final* Discharge Date/Time: 03/07/19 15:25 Chief Complaint: Shortness of Breath/Dyspnea Stated Complaint: ams ED Provider: Dar Amezcua Discharge Problem: Hypoxia Patient Disposition: Admitted As Inpatient Discharge Instructions Interventions: ED Discharge Assessment Last Done: 03/07/19 15:25 The scribe's documentation has been prepared under my direction and personally reviewed by me in its entirety. I confirm that the note above accurately reflects all work, treatment, procedures, and medical decision making performed by me.
== END 2019-03-09 16:42 | disposition hospice, home (50) | DRG 189 ==
LOC: ED 10:25 → 1E 14:18 → SUATTDRO 14:18 → 1E 15:25 → 4E 20:29